=== PATIENT | female | born 1965 | race Caucasian/White ===

== ENCOUNTER 2023-02-04 10:30 | Outpatient (RCR) | payer BC, SELFPAY | END 2023-02-15 09:03 | disposition home or self-care (01) | PROVIDERS: PCP Nurse Practitioner Family; Visit Provider Nurse Practitioner Family | DX: M54.31 Sciatica, right side (principal); Z51.89 Encounter for other specified aftercare | CPT/HCPCS: 97110; 97162 ==

== ENCOUNTER 2023-03-11 10:20 | Outpatient (CLI) | payer BC, SELFPAY ==
--- NOTE | 2023-03-11 10:15 | CRLHL7_ITS ---
For Patients: As a result of the Century Cures Act, medical imaging exams and procedure reports are released immediately into your electronic medical record. You may view this report before your referring provider. If you have questions, please contact your health care provider. INDICATION: Right lower extremity pain TECHNIQUE: Ultrasound venous duplex lower extremity bilateral. Compression venous exam was performed using live-scale, color Doppler, and spectral Doppler imaging. COMPARISON: None. FINDINGS: Sonographic imaging demonstrates the common femoral, deep femoral, superficial femoral, popliteal, posterior tibial and greater saphenous veins to be fully compressible with normal color Doppler blood flow in both lower extremities. IMPRESSION: Normal bilateral lower extremity venous ultrasound, no sign of deep venous thrombosis. Dictated by Conner Alexander MD @ 03/11/2023 11:04:49 AM (Electronically Signed)
== END 2023-03-11 10:21 | disposition home or self-care (01) ==
PROVIDERS: PCP Nurse Practitioner Family; Visit Provider Nurse Practitioner Family
DX: M79.661 Pain in right lower leg (principal); G45.9 Transient cerebral ischemic attack, unspecified; I49.8 Other specified cardiac arrhythmias
CPT/HCPCS: 93225; 93226; 93970

== ENCOUNTER 2023-03-12 09:31 | Outpatient (CLI) | payer BC, SELFPAY | END 2023-03-12 09:32 | disposition home or self-care (01) | PROVIDERS: PCP Nurse Practitioner Family; Visit Provider Nurse Practitioner Family | DX: G45.9 Transient cerebral ischemic attack, unspecified (principal); Z13.6 Encounter for screening for cardiovascular disorders; Z13.1 Encounter for screening for diabetes mellitus | CPT/HCPCS: 80061 ==

== ENCOUNTER 2023-04-30 12:38 | Outpatient (CLI) | payer BC, SELFPAY | END 2023-04-30 12:39 | disposition home or self-care (01) | LOC: RAD 12:38 | PROVIDERS: PCP Nurse Practitioner Family; Visit Provider Internal Medicine | DX: I49.8 Other specified cardiac arrhythmias (principal); R00.2 Palpitations | CPT/HCPCS: 93306 ==

== ENCOUNTER 2023-05-04 13:17 | Outpatient (CLI) | payer BC, SELFPAY | END 2023-05-04 13:18 | disposition home or self-care (01) | LOC: KYNREF 13:17 | PROVIDERS: PCP Nurse Practitioner Family; Visit Provider Nurse Practitioner Family | DX: R00.2 Palpitations (principal); Z13.29 Encounter for screening for other suspected endocrine disorder | CPT/HCPCS: 84443 ==

== ENCOUNTER 2023-06-10 11:55 | Outpatient (CLI) | payer BC, SELFPAY ==
--- OUTSIDE RECORDS SUMMARY | 2023-06-10 11:57 | XMS_ITS ---
Author Name Unknown Organization [facility] Address [address] [place] [address] Care Team Providers Care Adult High School Instructor Name Role Phone Unavailable Unavailable Unavailable Surgery Details Not on file Complications Check Surgery Details section. Procedure Estimated Blood Loss Check Surgery Details section. Procedure Findings Check Surgery Details section. Procedure Specimens Taken Check Surgery Details section.
--- OUTSIDE RECORDS SUMMARY | 2023-06-10 11:57 | XMS_ITS | Encounter Summary ---
Author Name Unknown Organization [facility] Address [address] [place] [address] Care Team Providers Care Ingredient Handler Name Role Phone Janet Perez M.D. Primary Care Provider [phone] Encounter Details Date Type Department Care Team (Latest Contact Info) Description 10/06/2022 7:45 AM CDT Ancillary Procedure Department of Gastroenterology Social History Tobacco Use Types Packs/Day Years Used Date Smoking Tobacco: Never Smokeless Tobacco: Never Alcohol Use Standard Drinks/Week Comments Yes 0 (1 standard drink = 0.6 oz pur e alcohol) Rarely Humiliation, Afraid, Rape, and Kick questionnair e Answer Date Recorded Within the last year, have y ou been afraid of your partner or ex-partner? No 10/25/2019 Within the last year, have y ou been humiliated or emotionally abused in other ways by your partner or ex-partner? No Within the last year, have y ou been kicked, hit, slapped, or otherwise physically hurt by your partner or ex-partner? No 10/25/2019 Within the last year, have y ou been raped or forced to have any kind of sexual activity by your partner or ex-partner? No 10/25/2019 Social Connection and Isolat ion Panel [NHANES] Answer Date Recorded In a typical week, how many times do you talk on the phone with family, friends, or neighbors? More than three times a week 10/25/2019 How often do you get togethe r with friends or relatives? Once a week 10/25/2019 How often do you attend [facility] or mandaeism services? More than 4 times per year 10/25/2019 Do you belong to any clubs o r organizations such as cheondoism groups, unions, fraternal or athletic groups, or school groups? Yes 10/25/2019 How often do you attend meet ings of the clubs or organizations you belong to? More than 4 times per year 10/25/2019 Are you , , di vorced, , never , or living with a partner? 10/25/2019 AUDIT-C Answer Date Recorded Q1: How often do you have a drink containing alc ohol? Monthly or less 10/25/2019 Q2: How many drinks containi ng alcohol do you have on a typical day when you are drinking? 1 or 2 10/25/2019 Q3: How often do you have si x or more drinks on one occasion? Never 10/25/2019 Overall Financial Resource Strain (CARDIA) Answe r Date Recorded How hard is it for you to pa y for the very basics like food, housing, medical care, and heating? Not hard at all 10/25/2019 PHQ-2 Answer Date Recorded PHQ-2 Score 0 06/10/2022 [facility] Occupat ional Health - Occupational Stress Questionnaire Answer Date Recorded Do you feel stress - tense, restless, nervous, or anxious, or unable to sleep at night because your mind is troubled all the time - these days? To some extent 10/25/2019 Exercise Vital Sign Answer Date Recorde d On average, how many days pe r week do you engage in moderate to strenuous exercise (like a brisk walk)? 3 days 10/25/2019 On average, how many minutes do you engage in exercise at this level? 20 min 10/25/2019 Hunger Vital Sign Answer Date Recorded Within the past 12 months, y ou worried that your food would run out before you got the money to buy more. Never true 10/25/19 20 Within the past 12 months, t he food you bought just didn't last and you didn't have money to get more. Never true 10/25/2019 PRAPARE - Transportation Answer Date Re corded In the past 12 months, has l ack of transportation kept you from medical appointments or from getting medications? No 10/08 In the past 12 months, has l ack of transportation kept you from meetings, work, or from getting things needed for daily living? No 10/25/2019 Depression Answer Date Recor ded PHQ-9 Total Score (max 27) 1 03/02 Nutrition Answer Date Recorded Nutrition: EVOO Fat Source No 10/24 On average, how many serving s of fruits and vegetables do you eat per day (serving size is equal to 1 cup or approximately the size of a tennis ball)? 2-3 10/25/2019 Dental Answer Date Recorded Dental: Regular Dentist Yes 05/20/19 Education Answer Date Recorded What is the highest level of school you have completed or the highest degree you have received? 12th grade 10/25/2019 Sex and Gender Information Value Date Recorded Sex Assigned at Not on file Gender Identity Not on file Sexual Orientation Not on file documented as of this encounter Plan of Treatment Not on file documented as of this encounter Procedures Procedure Name Priority Date/Time Associated Diagnosis Comments GASTROENTEROLOGY IMAGE EXAM Routine 10/06/2022 7:45 AM CDT documented in this encounter Results * Colonoscopy-Gastroenterology Image Exam (10/06/2022 7:45 AM CDT) 10/06/2022 7:39 AM CDT Narrative IIMS - 10/06/2022 9:11 AM CDT This order has been created and auto-finalized to support the import of images acquired without order. The clinical documentation to support these images can be found on the encounter that produced images. Provider Not In System IMG NON RAD IMAGI NG PROCEDURES IIMS NA documented in this encounter Visit Diagnoses Not on filedocumented in this encounter Additional Health Concerns Assessment Noted Time PHQ-9 Depression Total Score: 1 03/02/20 9:04 AM CDT documented as of this encounter Care Teams Ingredient Handler Relationship Specialty Start Date End Date Janet Perez M.D. [address] [place] [address] PCP - General 05/28/22 documented as of this encounter
--- OUTSIDE RECORDS SUMMARY | 2023-06-10 11:57 | XMS_ITS | Encounter Summary ---
Author Name Unknown Organization [facility] Address [address] [place] [address] Care Team Providers Care Checkman Name Role Phone Janet Perez M.D. Primary Care Provider [phone] Reason for Visit * Outpatient (Routine) - Closed Specialty Diagnoses / Procedures Referred By Contact Referred To Contact Gastroenterology and Hepatology Pedro Cowan APRN, C.N.P., M.S. [address] [place] [phone] [facility] Referral ID Status Reason Start Date Expiration Date Visits Re quested Visits Authorized [id number] Closed 07/13/2022 07/12/2025 1 1 Encounter Details Date Type Department Care Team (Latest Contact Info) Description 10/08/2022 8:50 AM CDT Virtual Visit Division of Gastroenterology in [place], [place] [address] [place] [phone] Pedro Cowan APRN, C.N.P., M.S. [address] [place] [phone] Esophagitis Eosinophilic (Primary Dx); Polyp Colon Adenomatous Social History Tobacco Use Types Packs/Day Years [...] week 10/25/2019 How often do you attend chur or baptist services? More than 4 times per year 10/25/2019 Do you belong to any clubs o r organizations such as faith groups, unions, fraternal or athletic groups, or [...] Answer Date Recorded PHQ-2 Score 0 06/10/2022 [facility] Occupat ional Health - Occupational Stress [...] on file documented as of this encounter Progress Notes * Pedro Cowan, PRINCESS, C.N.P., M.S. - 10/08/2022 8:50 AM CDT Phone visit. CHIEF COMPLAINT/REASON FOR VISIT Eosinophilic esophagitis, surveillance colon cancer. HISTORY OF PRESENT ILLNESS I spoke to Mrs. Velma Naik on the phone today. We have discussed the colonoscopy and endoscopy results in detail. She has no family history of colon cancer. EGD shows findings for EoE including aringed esophagus and some edema. No exudates. There were some furrows grade 1 and no stricture. Pull-through dilation was performed to 18 mm with mild disruption of the GE junction. She is experiencing some discomfort when she swallows. There were some fundic gland polyps in the stomach without worrisome features. Pathology results are pending. ASSESSMENT / PLAN #1 Eosinophilic esophagitis, currently on omeprazole 20 mg once daily We will wait for the pathology results to return. If she is in remission from an EoE standpoint, she should continue the omeprazole 20 mg once daily. She would prefer a call, as she is not on the portal, once her biopsy results are available. #2 Surveillance colon cancer Again, we will wait for the biopsy results to return, but she can plan on 7-10 year surveillance interval. Billing: I spent 6 minutes with the patient/and family on the phone; reviewing and interpreting test results; discussing and coordinating care. documented in this encounter Plan of Treatment Not on file documented as of this encounter Visit Diagnoses Diagnosis Esophagitis Eosinophilic- Primary Polyp Colon Adenomatous documented in this encounter Additional Health Concerns Assessment Noted Time PHQ-9 Depression Total Score: 1 03/02/20 22 9:04 AM CDT documented as of this encounter Care Teams Checkman Relationship Specialty Start Date End Date Janet Perez M.D. [address] [phone] PCP - General 05/28/22 documented as of this encounter
--- OUTSIDE RECORDS SUMMARY | 2023-06-10 11:57 | XMS_ITS | Encounter Summary ---
Author Name Unknown Organization [facility] Address [address] [place] [address] Care Team Providers Care Instrument Lens Inspector Name Role Phone Janet Perez M.D. Primary Care Provider [phone] Reason for Visit * Reason Comments Med Refill Encounter Details Date Type Department Care Team ([facility] st Contact Info) Description 09/17/2022 Refill Division of Gastroenterology in [place], [place] [address] [place] [phone] Pedro Cowan, PRINCESS, C.N.P., M.S. [address] [place] [phone] Med Refill Social History Tobacco Use Types Packs/Day Years [...] 10/25/2019 How often do you attend chur ch or methodist services? More than 4 times per year 10/25/2019 Do you belong to any clubs o r organizations such as quaker groups, unions, fraternal or athletic groups, or [...] Answer Date Recorded PHQ-2 Score 0 06/10/2022 [facility] Questionnaire Answer Date [...] documented as of this encounter Visit Diagnoses Not on filedocumented in this encounter Additional Health Concerns Assessment Noted Time PHQ-9 Depression Total Score: 1 03/02/20 22 9:04 AM CDT documented as of this encounter Care Teams Instrument Lens Inspector Relationship Specialty Start Date End Date Janet Perez M.D. [address] [place] [phone] PCP - General 05/28/22 documented as of this encounter
--- OUTSIDE RECORDS SUMMARY | 2023-06-10 11:57 | XMS_ITS | Encounter Summary ---
Author Name Unknown Organization [facility] Address [address] [place] [address] Care Team Providers Care Organ Grinder Name Role Phone Janet Perez M.D. Primary Care Provider [phone] Encounter Details Date Type Department Care Team (Latest Contact Info) Description 10/06/2022 8:12 AM CDT Anesthesia Event Division of Gastroenterology in [place], [place] [address] [place] [phone] Kristian Cohen APRN, CRNA, Hyun Gold M.D. [address] [place] [phone] Anesthesia Record Procedure Summary Procedure Name Responsible Anesthesiologist Anesthesia Start Time Anesthesia Stop Time EGD (ESOPHAGOGASTRODUODE NOSCOPY) RESTRICTED Kristian Cohen APRN, CRNA, DNAP 10/06/22 0812 10/06/22 0905 Events Date Time Event Comment 10/06/2022 0739 0812 An Start Machine/Equipme nt Checked Infection Precautions Followed Procedure/Site Verified NPO Status Verified Supine Standard ASA Monitors Applied 0818 Turnover to Proceduralist 0821 Proc Start 0856 Proc Fin 0900 Turnover to ANE Staff 0900 an stop data 0905 An End I completed my handoff to the receiving staff during which we 1. Identified the patient 2. Identified the responsible provider 3. Reviewed the pertinent medical history 4. Discussed the surgical course 5. Reviewed intra-op anesthesia management and issues during anesthesia 6. Set expectations for post-procedure period 7. Allowed opportunity for questions and acknowledgement of understanding. Meds Name Total propofol 10 mg/mL 752.05 mg lidocaine 2% (mg) injection 40 mg ondansetron PF 4 mg/2 mL injection 4 mg Lactated Ringers Free Drip 100 mL * Agents No agents on file. * Blood No blood administrations on file. Lines, Drains, and Airways Type Details Placement Removal Peripheral IV Placement Date: 09/09 ; Placement Time: 734; Catheter Size: 20 G; Orientation: Right; Location: Hand; Site Prep: Chlorhexidine (Preferred); Technique: Anatomical landmarks; Inserted by: Suzy Das; Insertion Attempts: 1; Removal Date: 10/06/22; Removal Time: 952; Removal Reason: Per order 10/06/22734 by Suzy Das, R.N. 10/06/22952 by Suzy Das RElisabethN. documented in this encounter Social History Tobacco Use Types Packs/Day Years [...] How often do you attend chur or faith services? More than 4 times per year 10/25/2019 Do you belong to any clubs o r organizations such as rastafari groups, unions, fraternal or athletic groups, or [...] Answer Date Recorded PHQ-2 Score 0 06/10/2022 [facility] Occupat ional [facility] - Occupational Stress Questionnaire Answer Date Recorded [...] on file documented as of this encounter OR Notes * Anesthesia Postprocedure Evaluation - Kristian Cohen APRN, CRNA, DNAP - 10/06/2022 9:07 AM CDT Patient: Velma Naik Procedure Summary Date: 10/06/22 Room / Location: Division of Gastroenterology in [place], [place] Anesthesia Start: 811 Anesthesia Stop: 904 Procedures: EGD (ESOPHAGOGASTRODUODENOSCOPY) RESTRICTED COLONOSCOPY RESTRICTED Diagnosis: Esophagitis Eosinophilic Dysphagia Polyp Colon Adenomatous Screening Cancer Colon Scheduled Providers: Kristian Bartlett M.D.; Kristian Cohen APRN, CRNA, DNAP Responsible Provider:Kristian Cohen APRN, CRNA, DNAP Anesthesia Type: MAC ASA Status: 2 Anesthesia Type: MAC Last vitals Vitals Value Taken Time BP 101/58 10/06/22 0904 Temp Pulse 80 10/06/22 0906 Resp 18 10/06/22 0906 SpO2 93 % 10/06/22 0906 Vitals shown include unvalidated device data. Please reference Vitals flowsheet for most recent vital signs. Anesthesia Post Evaluation Patient Disposition: dismissal Cardiovascular status: hemodynamics (HR & BP) acceptable Respiratory status: patent airway with spontaneous effort Temperature: normothermic Oxygen requirements: room air Level of consciousness: awake Pain score: pain adequately controlled and/or at baseline Post Op nausea/vomiting: none Hydration status: euvolemic * Anesthesia Preprocedure Evaluation - Hyun Etienne M.D. - 10/06/2022 7:38 AM CDT Preprocedure Anesthesia & H&P Assessment Procedure Summary Date/Time: 10/06/22 0796 Scheduled providers: Kristian Bartlett M.D.; Kristian Cohen, PRINCESS, CLINICAL DIETETIC TECHNICIAN, DNAP Procedures: EGD (ESOPHAGOGASTRODUODENOSCOPY) RESTRICTED COLONOSCOPY RESTRICTED Diagnosis: Esophagitis Eosinophilic [K20.0] Dysphagia [R13.10] Polyp Colon Adenomatous [D12.6] Screening Cancer Colon [Z12.11] Location: Division of Gastroenterology in [place], [place] Pertinent components of the patient's history including current problem list, medical history, surgical history, family history, social history, medications and allergies were reviewed. Present illness and pre-op diagnosis were confirmed. The planned surgery / procedure was verified with the patient / legal guardian. The patient's general health condition remains unchanged RELEVANT COMORBID CONDITIONS RESP (+) Asthma Mild Persistent (HCC) GI (+) Gastro-Esophageal Reflux Disease With Esophagitis Without Bleeding Other (+) Obesity Body Mass Index 30-39.9 Adult OBJECTIVE PHYSICAL EXAMINATION Airway (HEENT) Mallampati: III TM Distance: <3 FB Neck ROM: Full Mouth Opening: >3 cm Upper Lip Bite Test Class: I Cardiovascular Rhythm: Regular Rate: Normal Cardiovascular Assessment: cardiovascular normal Functional Capacity: >4 METS Pulmonary Pulmonary Assessment: Clear General / Constitutional Constitutional Assessment: Overweight General State of Health:: healthy appearing and calm Neurological Neurologic Assessment:??alert Dental Normal ASSESSMENT / PLAN ANESTHESIA PLAN ASA: 2 Anesthesia Plan: MAC Patient seen and allergies reviewed, anesthesia plan and risks discussed directly with patient /legal guardian or through an paraprofessional interpreter. 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[place], [place]; BMI 36; mild asthma; EOE; migraines; here for EGD/colonoscopy; no prior [place] intubation documentation records; MP 3 with anterior appearance; Plan MAC documented in this encounter Plan of Treatment Not on file documented as of this encounter Visit Diagnoses Not on filedocumented in this encounter Administered Medications Inactive Administered Medications - up to 3 most recent administrations Medication Order MAR Action Action Date Dose Rate Site lactated ringers intravenous, Continuous Infusion: Per Instructions PRN, Starting on Wed10/06/22 at 0812, Anesthesia Intra-op New Bag 10/06/2022 8:12 AM CDT lidocaine (PF) (cardiac) injection intravenous, As needed, Starting on Wed10/06/22 at 0815, Anesthesia Intra-op Given 10/06/2022 8:15 AM CDT 40 mg ondansetron (PF) injection (ZOFRAN) intravenous, As needed, Starting on Wed10/06/22 at 0815, Anesthesia Intra-op Given 10/06/2022 8:15 AM CDT 4 mg propofol 10 mg/mL infusion (DIPRIVAN) intravenous, Continuous Infusion: Per Instructions PRN, Starting on Wed10/06/22 at 0815, Anesthesia Intra-op Rate/Dose Change 10/06/2022 8:48 AM CDT 125 mcg/kg/min 73.5 mL/hr Rate/Dose Change 10/06/2022 8:39 AM CDT 150 mcg/kg/min 88. 2 mL/hr Given 10/06/2022 8:38 AM CDT 50 mg documented in this encounter Additional Health Concerns Assessment Noted Time PHQ-9 Depression Total Score: 1 03/02/20 22 9:04 AM CDT documented as of this encounter Care Teams Organ Grinder Relationship Specialty Start Date End Date Janet Perez M.D. [address] [phone] PCP - General 05/28/22 documented as of this encounter
--- OUTSIDE RECORDS SUMMARY | 2023-06-10 11:57 | XMS_ITS | Clinical Summary ---
Author Name Unknown Organization [facility] Address [address] [place] [address] Care Team Providers Care Kitchen Clerk Name Role Phone Janet Perez M.D. Primary Care Provider [phone] Source Comments Patient records contain information from all sites at [facility]. For routine questions regarding patient records, call [phone] during business hours, M-F 8:00 AM - 5:00 PM Central Time. Record requests for emergency care only can be directed to [phone] at any time.[facility] Allergies Active Allergy Reactions Criticality Noted Date Comments Adhesive Tape-Silicones Rash Low 03/30/2019 Causes redness for days Lisinopril Other (see comments) 08/12/2009 Naproxen Other (see comments) 08/12/2009 Rash and extreme itching Pollen Extracts Other (see comments) 12/06/2019 Nasal symptoms Medications Medication Sig Dispensed Refills Start Date End Date Status ACETAMINOPHEN ORAL Take 500 mg by mouth as needed. 0 11/04/2009 Active omeprazole (PriLOSEC OTC) [address] tablet Take 20 mg by mouth every morning before breakfast. 0 Active ibuprofen (ADVIL,MOTRIN) 200 mg tablet Take 200 mg by mouth as needed for pain. 0 Active loratadine (CLARITIN) 10 mg tablet Take 10 mg by mouth daily. 0 Active multivitamin capsule Take 1 capsule by mouth daily. 0 Active Ventolin HFA 90 mcg/actuation inhaler Inhale 2 puffs every 4 (four) hours as needed for wheezing or shortness of breath. 8 g 3 03/02/2022 Active Flovent HFA 44 mcg/actuation inhaler Inhale 2 puffs 2 (two) times a day. Rinse mouth with water after use to reduce aftertaste and incidence of candidiasis. Do not swallow. 10.6 g 3 03/02/2022 Active albuterol (Ventolin HFA) 90 mcg/actuation inhaler Inhale 2 puffs every 4 (four) hours as needed for wheezing or shortness of breath. 18 g 3 04/08/2022 Active fluticasone propionate (FLOVENT HFA) 44 mcg/actuation inhaler Inhale 2 puffs 2 (two) times a day. Rinse mouth with water after use to reduce aftertaste and incidence of candidiasis. Do not swallow. 10.6 g 3 04/08/2022 Active polyethylene glycol-electrolytes (GoLYTELY) 236-22.74-6.74 -5.86 gram solution Drink 1st portion of prep at 6 PM the evening before. 2nd portion must be started 3 hours before and finished 2 hours prior to report time 4000 mL 0 07/13/2022 Active sodium,potassium,mag sulfates (SUPREP BOWEL PREP) 17.5-3.13-1.6 gram solution PM: Mix one 6oz bottle w/water to 16oz line; drink all plus 32oz water over 1 hr. AM: Repeat; complete at least 2 hrs before appt. 1 kit 0 09/18/2022 Active cholecalciferol, vitamin D3, (Vitamin D3) 10 mcg (400 unit) capsule Take 400 Units by mouth. 0 Active Active Problems Problem Noted Date Diagnosed Date Leiomyoma (Fibroid) Uterus 06/10/2022 Overview: Us 06/10/22: Diffuse fibroids throughout myometrium, posterior fibroid distorts endometrium slightly. No fibroids over 2 cm noted. Some calcifications seen. She has a normal thin endometrium. Asthma Mild Persistent 03/02/2022 Preventive Gynecological Exam 01/29/2021 Overview: Pap smear is UTD, repeat next year. Mammogram is UTD, due in May. Colonoscopy is UTD, due for repeat 2026. Routine fasting labs are updated today as listed below. Encouraged her to exercise 4-5 times a week for 30-45 minutes. She is due for a tetanus booster, but we are out of this so she is encouraged to get this elsewhere. Apnea Sleep Obstructive 03/23/2019 Overview: On CPAP. Obesity Body Mass Index 30-39.9 Adult 05/27/2017 Migraine Headache 03/18/2017 Fatigue Chronic 03/18/2017 Incontinence Urinary Stress Female 10/02/2014 Overview: Status post mid urethral sling and doing well. Mild frequency patient will work on bladder training. Esophagitis Eosinophilic 11/16/2012 Anxiety 11/14/2010 Gastro-Esophageal Reflux Dis ease With Esophagitis Without Bleeding 11/14/2010 Resolved Problems Problem Noted Date Diagnosed Date Resolved Date Chronic Cough 03/18/2017 12/17/2019 Anemia 11/14/2010 12/17/2019 Leiomyoma (Fibroid) Uterus 08/21/2009 0 06/10/2022 Immunizations Name Administration Dates Next Due Influenza (IM) Preservative Free 03/04/2009 Influenza TIV (IM) 02/16/2012,02/07/2010 Influenza, Injectable, Quadrivalent 01/31/2015 Influenza, Seasonal, Injectable 02/16/2012,02/07 Influenza, Unspecified 02/25/2018,2016,01/31/2015,2013,02/16/2012,03/16/2011,02/07/2010,1 ,03/24/2008 Tdap 09/29/2021,03/24/2010 influenza vaccine quad (FLUZONE/FLUARIX) (6 months and older)(PF) 03/13/2019,02/25/2018,02/26/2017 Family History Medical History Relation Name Comments Alzheimer's disease Father Alzheimers dementia.. Father Lung cancer Father Diabetes Maternal Grandmother Autoimmune disease Mother Irregular heart beat Mother Osteoporosis Mother Relation Name Status Comments Father Maternal Grandmother Mother Social History Tobacco Use Types Packs/Day Years Used Date Smoking Tobacco: Never Smokeless Tobacco: Never Tobacco Cessation:Counseling Given: Not Answered Alcohol Use Standard Drinks/Week Comments Yes 0 [...] often do you attend chur ch or scientologist services? More than 4 times per year 10/25/2019 Do you belong to any clubs o r organizations such as anabaptist groups, unions, fraternal or athletic groups, or [...] Answer Date Recorded PHQ-2 Score 0 06/10/2022 [facility] of Occupat ional Health - Occupational Stress [...] Answer Date Recorded Nutrition: EVOO Fat Source Unknown 11/04 Nutrition: Servings of Fruits/Vegetables per Day Not on file 11/04/2022 Dental Answer Date Recorded Dental: Regular Dentist Unknown 11/05/19 23 Education Answer Date Recorded What is the highest level of school you have completed or the highest degree you have received? 12th grade 10/25/2019 Sex and Gender Information Value Date Recorded Sex Assigned at Not on file Gender Identity Not on file Sexual Orientation Not on file Last Filed Vital Signs Vital Sign Reading Time Taken Comments Blood Pressure 107/66 10/06/2022 9:51 AM CDT Pulse 73 10/06/2022 9:55 AM CDT Temperature 37 ??C (98.6 ??F) 10/06/2022 9:51 AM CDT Respiratory Rate 11 10/06/2022 9:55 AM CDT Oxygen Saturation 96% 10/06/2022 9:55 AM CDT Inhaled Oxygen Concentration - - Weight 98 kg (216 lb 0.8 oz) 10/06/2022 7:20 AM CDT Height 166 cm (5' 5.35) 06/10/2022 9:14 AM ELECTRICIAN OUTSIDE Body Mass Index 35.56 06/10/2022 9:14 AM ELECTRICIAN OUTSIDE Plan of Treatment Health Maintenance Due Date Last Done Comments CT Colonography 1967 Cologuard 1967 Hepatitis B Vaccines (1 of 3 - 3-dose series) 1967 COVID-19 Vaccine (#1) 1967 Pneumococcal vaccine (0-64 y ears) (1 of 2 - PCV) 1973 Zoster Vaccines (1 of 2) 2017 Influenza Vaccine (#1) 2023 9, 02/25/2018, 02/25/2018, Additional history exists Depression Screening (Annual PHQ-2) 05/10/2023 Mammogram 06/10/2023 06/10/2022, 05/11, 05/31/2020, Additional history exists Fasting Glucose for Diabetes Screening 03/11/2025 03/11/2022, 09/29/2021, 01/29/2021, Additional history exists Lipid (Cholesterol) Screening 01/29/2026 01/29/2021, 06/25/2016 Cervical Cancer Screening 06/10/20272022, 06/10/2022, 08/25/2018, Additional history exists Colonoscopy 10/07/2027 10/06/2022, 09/09, 04/22/2017 Colorectal Cancer Surveillance 10/07/2027 DTaP,Tdap,and Td Vaccines (3 - Td or Tdap) 09/30/2031 09/29/2021, 03/24/2010 HIV Screening Completed 08/31/2011 Hepatitis C Screening Completed 01/29/2021 Medical Devices Implanted Type Area Dynamite Packing Machine Operator Device Identifier Shelf Expiration Date Model / Serial / Lot Clp Rsp [facility] Endo 235 - [id number] Implanted:Qty: 1 on 01/18/2019 by Darlyn Gonzales M.D. at [facility] Hardware e.g. pins/screws/ rods N/A: Other/Legacy - See Implant Description [employer] [id number] 02/26/2021 [id number] Align Sling Retropubic - Rosario [id number] Implanted:Qty: 1 on 11/20/2014 Urogenital Implant Other/Legacy - See Implant Description CElisabethR Description:Device Manufactu rer - [employer] Patient Care Division. Body Location - Other. Not Applicable. Device Status Text - [id number]. Urologic Other Urologic Other Bladder Care Teams Kitchen Clerk Relationship Specialty Start Date End Date Janet Perez M.D. [address] [place] [address] PCP - General 05/28/22
--- OUTSIDE RECORDS SUMMARY | 2023-06-10 11:57 | XMS_ITS | Encounter Summary ---
Author Name Unknown Organization [facility] Address [address] [place] [address] Care Team Providers Care Paper And Prints Restorer Name Role Phone Janet Perez M.D. Primary Care Provider Encounter Details Date Type Department Care Team (Latest Contact Info) Description 10/06/2022 7:40 AM CDT Ancillary Procedure Department of Gastroenterology [...] 10/25/2019 How often do you attend [facility] or voodoo services? More than 4 times per year 10/25/2019 Do you belong to any clubs o r organizations such as voodoo groups, unions, fraternal or athletic groups, or [...] Answer Date Recorded PHQ-2 Score 0 06/10/2022 [facility] of Occupat ional Health - Occupational Stress [...] Diagnosis Comments GASTROENTEROLOGY IMAGE EXAM Routine 10/06/2022 7:40 AM CDT documented in this encounter Results * Duodenum, Entire examined duodenum Upper GI endoscopy-Gastroenterology Image Exam (10/06/2022 7:40 AM CDT) 10/06/2022 7:39 AM CDT Narrative [...] documented as of this encounter Care Teams Paper And Prints Restorer Relationship Specialty Start Date End Date Janet Perez M.D. [address], [place] [address] PCP - General 05/28/22 documented as of this encounter
--- OUTSIDE RECORDS SUMMARY | 2023-06-10 11:57 | XMS_ITS | Encounter Summary ---
Author Name Unknown Organization [facility] Address [address] [place] [address] Care Team Providers Care Fishing Tool Operator Name Role Phone Janet Perez M.D. Primary Care Provider [phone] Reason for Visit * Reason Onset Date Comments Pre-visit Intake 10/07/2022 Encounter Details Date Type Department Care Team (Latest Contact Info) Description 10/07/2022 9:15 AM CDT Clinical Communication Virtual Review in [place], [place] [address] [place] [address] Pre-visit Intake Social History Tobacco Use Types Packs/Day Years [...] often do you attend chur ch or mosque services? More than 4 times per year 10/25/2019 Do you belong to any clubs o r organizations such as yazidism groups, unions, fraternal or athletic groups, or [...] Answer Date Recorded PHQ-2 Score 0 06/10/2022 [facility] of Occupat ional Health - Occupational Stress [...] documented as of this encounter Care Teams Fishing Tool Operator Relationship Specialty Start Date End Date Janet Perez M.D. [address], [place] [phone] PCP - General 05/28/22 documented as of this encounter
--- OUTSIDE RECORDS SUMMARY | 2023-06-10 11:57 | XMS_ITS | Referral Summary ---
Author Name Unknown Organization [facility] Address [address] [place] [address] Care Team Providers Care Swiss Machinist Name Role Phone Janet Perez M.D. Primary Care Provider [phone] Source Comments Patient records contain information from all sites at [facility]. For routine questions regarding patient records, call [phone] during business hours, M-F 8:00 AM - 5:00 PM Central Time. Record requests for emergency care only can be directed to [phone] at any time.[facility] Allergies Active Allergy Reactions Criticality Noted Date [...] quad (FLUZONE/FLUARIX) (6 months and older)(PF) 03/13/2019,02/25/2018,02/26/2017 Social History Tobacco Use Types Packs/Day Years [...] How often do you attend chur or confucianism services? More than 4 times per year 10/25/2019 Do you belong to any clubs o r organizations such as shinto groups, unions, fraternal or athletic groups, or [...] Answer Date Recorded PHQ-2 Score 0 06/10/2022 [facility] of Occupat ional Health - Occupational Stress [...] Date Recorded Dental: Regular Dentist Unknown 11/05/19 Education Answer Date Recorded What is the [...] 166 cm (5' 5.35) 06/10/2022 9:14 AM FLAT POLISHER Body Mass Index 35.56 06/10/2022 9:14 AM FLAT POLISHER Plan of Treatment Not on file Medical Devices Implanted Type Area Profiling Machine Operator Device Identifier Shelf Expiration Date Model / Serial / Lot Clp Rsp [facility] Endo 235 - [id number] Implanted:Qty: 1 on 01/18/2019 by Darlyn Gonzales M.D. at [facility]/[employer] e.g. pins/screws/ rods N/A: Other/Legacy - See Implant Description [employer] [id number] 02/26/2021 [id number] Align Sling Retropubic - Rosario [id number] Implanted:Qty: 1 on 11/20/2014 Urogenital Implant Other/Legacy - See Implant Description Description:Device Manufactu rer - [employer] Patient Care Division. Body Location - Other. Not Applicable. Device Status Text - [id number]. Urologic Other Urologic Other Bladder Care Teams Swiss Machinist Relationship Specialty Start Date End Date Janet Perez M.D. [address] [place] [address] PCP - General 05/28/22
--- OUTSIDE RECORDS SUMMARY | 2023-06-10 11:57 | XMS_ITS | Encounter Summary ---
Author Name Unknown Organization [facility] Address [address] [place] [address] Care Team Providers Care Knockout Man Name Role Phone Janet Perez M.D. Primary Care Provider [phone] Reason for Referral * Outpatient (Routine) - Closed Specialty Diagnoses / Procedures Referred By Maxim rivera Referred To Contact Diagnoses Polyp Colon Adenomatous Screening Cancer Colon Procedures Colonoscopy restricted Pedro Cowan APRN, C.N.P., M.S. [address] [place] [phone] [facility] Referral ID Status Reason Start Date Expiration Date Visits Re quested Visits Authorized [id number] Closed 07/13/2022 07/13/2023 1 1 * Outpatient (Routine) - Closed Specialty Diagnoses / Procedures Referred By Maxim rivera Referred To Contact Diagnoses Esophagitis Eosinophilic Dysphagia Procedures EGD (EsophagoGastroDuodenoscopy) Restricted Pedro Cowan APRN C.N.P., M.S. [address] [place] [phone] [facility] Referral ID Status Reason Start Date Expiration Date Visits Re quested Visits Authorized [id number] Closed 07/13/2022 07/13/2023 1 1 Reason for Visit * Outpatient (Routine) - Closed Specialty Diagnoses / Procedures Referred By Maxim rivera Referred To Contact Diagnoses Polyp Colon Adenomatous Screening Cancer Colon Procedures Colonoscopy restricted Pedro Cowan APRN, C.NPascual., M.S. [address] [place] [phone] [facility] Referral ID Status Reason Start Date Expiration Date Visits Re quested Visits Authorized [id number] Closed 07/13/2022 07/13/2023 1 1 Encounter Details Date Type Department Care Team (Latest Contact Info) Description 10/06/2022 6:44 AM CDT - 10/06/2022 11:59 PM CDT Hospital Encounter Division of Gastroenterology in [place], [place] [address] [place] [phone] Pedro Cowan APRN, C.NPascual., M.S. [address] [place] [phone] Kristian Bartlett M.D. [address] [place] [phone] Kristian Cohen APRN, STEP DOWN NURSE, DNAP Esophagitis Eosinophilic; Dysphagia; Polyp Colon Adenomatous; Screening Cancer Colon Discharge Disposition: Home or Self Care Social History Tobacco Use Types Packs/Day Years [...] often do you attend chur ch or jew services? More than 4 times per year 10/25/2019 Do you belong to any clubs o r organizations such as evangelical groups, unions, fraternal or athletic groups, or [...] Date Recorded PHQ-2 Score 0 06/10/2022 [facility] Questionnaire Answer Date Recorded [...] on file documented as of this encounter Last Filed Vital Signs Vital Sign Reading Time Taken Comments Blood Pressure 107/66 10/06/2022 9:51 AM CDT Pulse 73 10/06/2022 9:55 AM CDT Temperature 37 ??C (98.6 ??F) 10/06/2022 9:51 AM CDT Respiratory Rate 11 10/06/2022 9:55 AM CDT Oxygen Saturation 96% 10/06/2022 9:55 AM CDT Inhaled Oxygen Concentration - - Weight 98 kg (216 lb 0.8 oz) 10/06/2022 7:20 AM CDT Height - - Body Mass Index 35.56 06/10/2022 9:14 AM LINUX ADMIN ENGINEER documented in this encounter Medications at Time of Discharge Medication Sig Dispensed Refills Start Date End Date ACETAMINOPHEN ORAL Take 500 mg by mouth as needed. 0 11/04/2009 albuterol (Ventolin HFA) 90 mcg/actuation inhaler Inhale 2 puffs every 4 (four) hours as needed for wheezing or shortness of breath. 18 g 3 04/08/2022 cholecalciferol, vitamin D3, (Vitamin D3) 10 mcg (400 unit) capsule Take 400 Units by mouth. 0 Flovent HFA 44 mcg/actuation inhaler Inhale 2 puffs 2 (two) times a day. Rinse mouth with water after use to reduce aftertaste and incidence of candidiasis. Do not swallow. 10.6 g 3 03/02/2022 fluticasone propionate (FLOVENT HFA) 44 mcg/actuation inhaler Inhale 2 puffs 2 (two) times a day. Rinse mouth with water after use to reduce aftertaste and incidence of candidiasis. Do not swallow. 10.6 g 3 04/08/2022 ibuprofen (ADVIL,MOTRIN) 200 mg tablet Take 200 mg by mouth as needed for pain. 0 loratadine (CLARITIN) 10 mg tablet Take 10 mg by mouth daily. 0 multivitamin capsule Take 1 capsule by mouth daily. 0 omeprazole (PriLOSEC OTC) [address] tablet Take 20 mg by mouth every morning before breakfast. 0 polyethylene glycol-electrolytes (GoLYTELY) 236-22.74-6.74 -5.86 gram solution Drink 1st portion of prep at 6 PM the evening before. 2nd portion must be started 3 hours before and finished 2 hours prior to report time 4000 mL 0 07/13/2022 sodium,potassium,mag sulfates (SUPREP BOWEL PREP) 17.5-3.13-1.6 gram solution PM: Mix one 6oz bottle w/water to 16oz line; drink all plus 32oz water over 1 hr. AM: Repeat; complete at least 2 hrs before appt. 1 kit 0 09/18/2022 Ventolin HFA 90 mcg/actuation inhaler Inhale 2 puffs every 4 (four) hours as needed for wheezing or shortness of breath. 8 g 3 03/02/2022 documented as of this encounter Plan of Treatment Not on file documented as of this encounter Procedures Procedure Name Priority Date/Time Associated Diagnosis Comments SURGICAL PATHOLOGY Routine 10/06/2022 8: 23 AM CDT COLONOSCOPY RESTRICTED Routine 10/06/2022 7:39 AM CDT Polyp Colon Adenomatous Screening Cancer Colon COLONOSCOPY Routine 10/06/2022 7:39 AM CDT Polyp Colon Adenomatous Screening Cancer Colon EGD (ESOPHAGOGASTRODUODE NOSCOPY) RESTRICTED Routine 10/06/2022 7:39 AM CDT Esophagitis Eosinophilic Dysphagia UPPER GI ENDOSCOPY Routine 10/06/2022 7: 39 AM CDT Esophagitis Eosinophilic Dysphagia documented in this encounter Results * Surgical Pathology (10/06/2022 8:23 AM CDT) 10/09/2022 10:38 AM CDT DTL Participated in the Interpretation Julissa Botello D.O. -Pathology Fellow 10/09/2022 10:38 AM CDT DTL Report electronically signed by Inez Pelayo M.D. I verify that I have examined all relevant slides/materials for the specimen(s) and rendered or confirmed the diagnosis. 10/09/2022 10:38 AM CDT DTL Gross Description A: Received in formalin labeled with the patient's name, medical record number, and esophagus-lower third esophagus, middle thirdesophagus are two pale jacobo-pink irregular soft tissues, each measuring 0.3 x 0.2 x 0.1 cm. Specimens are submitted en toto in cassetteA1. ??Grossed by BLW. B: Received in formalin labeled with the patient's name, medical record number, and colon-sigmoid is a 1.1 x 0.5 x 0.2 cm pale jacobo-pinkpolypoid soft tissue. Specimen is inked at the resection margin, serially sectioned, and submitted entirely in cassette B1. Grossed byBLW. 10/09/2022 10:38 AM CDT DTL Interpretation FINAL DIAGNOSIS A. ??Esophagus, lower third, middle third, endoscopic biopsy: ??Squamous esophageal mucosa without diagnostic abnormality. ??No intraepithelial eosinophils identified. B. ??Colon, sigmoid, polyp, endoscopic biopsy: ??Colonic mucosa with focal hyperplastic change. ??No dysplasia. 10/09/2022 10:38 AM CDT DTL Biopsy (Esophagus) 10/06/2022 8:23 AM CDT Polyp (Colon) 10/06/2022 8:5 6 AM CDT Kristian Bartlett M.D. LAB SURG PATH ORDER [facility] [address] [place] [address], [facility] [address] [place] [address] * Colonoscopy (10/06/2022 7:39 AM CDT) 10/06/2022 7:39 AM CDT Impressions [facility] - 10/06/2022 9:04 AM CDT Post-op Diagnoses: ? - The examined portion of the ileum was normal. ? - One 4 mm flat polyp in the sigmoid colon, removed with a cold snare. ? Resected and retrieved. ? - The examination was otherwise normal. ? - Retroflexion in rectum not performed due to small size. Narrative [facility] - 10/06/2022 9:04 AM CDT Gonda 2 GI Patient Name: Velma Naik Date of : 1965 Age: 57 Gender: Female Procedure Date: 10/06/2022 Procedure: ? Colonoscopy Providers: ? Kristian Bartlett MD Referring Provider: ?Pedro Cowan Pre-op Diagnoses: ?High risk colon cancer surveillance: Personal ? history of colonic polyps Recommendation: ? - Await pathology results. ? - Repeat colonoscopy in 7-10 years for surveillance. ? - Return to physician assistant manager airside operations. Findings: ? The perianal and digital rectal examinations were normal. ? The terminal ileum appeared normal. ? A 4 mm polyp was found in the sigmoid colon. The polyp was flat. The ? polyp was removed with a cold snare. Resection and retrieval were ? complete. ? The exam was otherwise without abnormality. Procedural Details: ? The patient was seen, evaluated, history reviewed, airway and heart-lung ? exams were performed by licensed provider and were satisfactory for ? planned level of sedation care. ? The risks, benefits and alternatives for the procedure and sedation were ? discussed and informed consent was obtained. A procedural pause was ? conducted in the presence of assisting personnel to verify the correct ? patient identity and procedure to be performed. Throughout the ? procedure, the patient's blood pressure, pulse, and oxygen saturations ? were monitored continuously. The Colonoscope was introduced through the ? anus and advanced to the 6 cm into the ileum. The colonoscopy was ? performed without difficulty. The patient tolerated the procedure well. ? The quality of the bowel preparation was evaluated using the BBPS ? ([place] Bowel Preparation Scale) with scores of: Right Colon = 3, ? Transverse Colon = 3 and Left Colon = 3 (entire mucosa seen well with no ? residual staining, small fragments of stool or opaque liquid). The total ? BBPS score equals 9. The quality of the bowel preparation was excellent. Complications: ? No immediate complications. Estimated Blood Loss: ?Estimated blood loss was minimal. Attending Participation: I personally performed the entire procedure. Kristian Bartlett MD 10/06/2022 9:04:08 AM This report has been signed electronically. Number of Addenda: 0 Note Initiated On: 10/06/2022 7:39 AM Pedro Cowan APRN, C.N.P., M.S. GI [place] OCEDURE ORDERABLES Performing Organization Address City/State/[facility] Co de Phone Number [facility] NA * Upper GI Endoscopy (10/06/2022 7:39 AM CDT) 10/06/2022 7:39 AM CDT Impressions [facility] - 10/06/2022 9:00 AM CDT Post-op Diagnoses: ? - Esophageal mucosal changes consistent with mild eosinophilic ? esophagitis. Pull-through, 18 mm balloon dilation performed with mild ? mucosal disruption at GE junction. Biopsied. ? - Multiple, moderately sized fundic gland polyps without worrisome ? features. ? - Normal examined duodenum. Narrative [facility] - 10/06/2022 9:00 AM CDT Ryana 2 GI Patient Name: Velma Naik Date of : 1965 Age: 57 Gender: Female Procedure Date: 10/06/2022 Procedure: ? Upper GI endoscopy Providers: ? Kristian Bartlett MD Referring Provider: ?Pedro Mohan Pre-op Diagnoses: ?Dysphagia, Eosinophilic esophagitis Recommendation: ? - Await pathology results. ? - Return to physician assistant manager airside operations. Findings: ? Mucosal changes including ringed esophagus and congestion (edema) were ? found in the lower third of the esophagus. Esophageal findings were ? graded using the Eosinophilic Esophagitis Endoscopic Reference Score ? (EoE-EREFS) as: Edema Grade 1 Present (decreased clarity or absence of ? vascular markings), Rings Grade 1 Mild (subtle circumferential ridges ? seen on esophageal distension), Exudates Grade 0 None (no white lesions ? seen), Furrows Grade 1 Mild (vertical lines without visible depth) and ? Stricture none (no stricture found). A TTS dilator was passed through ? the scope. Dilation with a 15-16.5-18 mm balloon dilator was performed ? to 18 mm. The dilation site was examined and showed mild mucosal ? disruption. Biopsies were taken with a cold forceps for histology. ? Multiple medium semi-sessile fundic gland polyps were found in the ? gastric fundus and in the gastric body. ? The examined duodenum was normal. Procedural Details: ? The patient was seen, evaluated, history reviewed, airway and heart-lung ? exams were performed by licensed provider and were satisfactory for ? planned level of sedation care. ? The risks, benefits and alternatives for the procedure and sedation were ? discussed and informed consent was obtained. A procedural pause was ? conducted in the presence of assisting personnel to verify the correct ? patient identity and procedure to be performed. Throughout the ? procedure, the patient's blood pressure, pulse, and oxygen saturations ? were monitored continuously. The Gastroscope was introduced through the ? mouth, and advanced to the second part of duodenum. The upper GI ? endoscopy was accomplished without difficulty. The patient tolerated the ? procedure well. Complications: ? No immediate complications. Estimated Blood Loss: ?Estimated blood loss was minimal. Attending Participation: I personally performed the entire procedure. Kristian Bartlett MD 10/06/2022 9:00:04 AM This report has been signed electronically. Number of Addenda: 0 Note Initiated On: 10/06/2022 7:39 AM Juanita Hernandez APRNN.P., M.S. GI [place] OCEDURE ORDERABLES Performing Organization Address City/State/[facility] Co ks Phone Number [facility] documented in this encounter Visit Diagnoses Diagnosis Esophagitis Eosinophilic Dysphagia Polyp Colon Adenomatous Screening Cancer Colon documented in this encounter Administered Medications Inactive Administered Medications - up to 3 most recent administrations Medication Order MAR Action Action Date Dose Rate Site lactated ringers 20 mL/hr, intravenous, Continuous, Starting on Wed10/06/22 at 0845, PACU & Post-Op Continued from OR 10/06/2022 9:10 AM CDT 20 mL/hr 20 mL/hr documented in this encounter Additional Health Concerns Assessment Noted Time PHQ-9 Depression Total Score: 1 03/02/20 22 9:04 AM CDT documented as of this encounter Care Teams Knockout Man Relationship Specialty Start Date End Date Janet Perez M.D. [address], [place] [phone] PCP - General 05/28/22 documented as of this encounter
--- OUTSIDE RECORDS SUMMARY | 2023-06-10 11:57 | XMS_ITS | Encounter Summary ---
Author Name Unknown Organization [facility] Address [address] [place] [address] Care Team Providers Care Pick Up Truck Driver Name Role Phone Janet Perez M.D. Primary Care Provider [phone] Reason for Visit * Reason Onset Date Comments Results 10/09/2022 Follow-up 10/09/2022 Encounter Details Date Type Department Care Team (Latest Contact Info) Description 10/09/2022 Clinical Communication Division of Gastroenterology in [place], [place] [address] [place] [phone] Radha Parker, RElisabethNElisabeth Results; Follow-up Social History Tobacco Use Types Packs/Day Years [...] often do you attend chur ch or caodaism services? More than 4 times per year 10/25/2019 Do you belong to any clubs o r organizations such as confucianism groups, unions, fraternal or athletic groups, or [...] Answer Date Recorded PHQ-2 Score 0 06/10/2022 [facility] - Occupational Stress [...] on file documented as of this encounter Miscellaneous Notes * Telephone Encounter - Radha Parker R.N. - 10/09/2022 2:42 PM CDT Images from the original note were not included. SUBJECTIVE CHIEF COMPLAINT / REASON FOR CALL Results Information Discussed Pedro Cowan APRN, C.N.P., M.S. P t [facility] Nurse Please let patient know biopsies from the esophagus looked good. Continue on 20 mg Prilosec once daily and return on an as need basis PLAN Disposition/Recommendation: self-care is appropriate at this time, patient encouraged to call back with questions and recommended continue engagement in self-management activities Information/Education: patient/caller able to teach back Caller agreeable to plan of care: yes The following references were used: provider Pedro Cowan APRN-TUNNEL MINER documented in this encounter Plan of Treatment Not on file documented as of this encounter Visit Diagnoses Not on filedocumented in this encounter Additional Health Concerns Assessment Noted Time PHQ-9 Depression Total Score: 1 03/02/20 22 9:04 AM CDT documented as of this encounter Care Teams Pick Up Truck Driver Relationship Specialty Start Date End Date Janet Perez M.D. [address] [place] [phone] PCP - General 05/28/22 documented as of this encounter
--- OUTSIDE RECORDS SUMMARY | 2023-06-10 11:58 | XMS_ITS | Encounter Summary ---
Author Name Unknown Organization [facility] Address [address] [place] [address] Care Team Providers Care Oracle Soa Architect Name Role Phone Janet Perez M.D. Primary Care Provider [phone] Reason for Referral * Outpatient (Routine) - Closed Specialty Diagnoses / Procedures Referred By Contact Referred To Contact Gastroenterology and Hepatology Pedro Cowan APRN, C.N.Cuong., M.S. [address] [place] [phone] [facility] Referral ID Status Reason Start Date Expiration Date Visits Re quested Visits Authorized [id number] Closed 07/13/2022 07/12/2025 1 1 CTURAL STEEL ENGINEER * Outpatient (Routine) - Closed Specialty Diagnoses / Procedures Referred By Contac t Referred To Contact Diagnoses Polyp Colon Adenomatous Screening Cancer Colon Procedures Colonoscopy restricted Pedro Cowan APRN C.N.P., M.S. [address] [place] [address] [facility] Referral ID Status Reason Start Date Expiration Date Visits Re quested Visits Authorized [id number] Closed 07/13/2022 07/13/2023 1 1 CTURAL STEEL ENGINEER * Outpatient (Routine) - Closed Specialty Diagnoses / Procedures Referred By Contac t Referred To Contact Diagnoses Esophagitis Eosinophilic Dysphagia Procedures EGD (EsophagoGastroDuodenoscopy) Restricted Pedro Cowan APRN, C.N.P., M.S. [address] [place] [phone] [facility] Referral ID Status Reason Start Date Expiration Date Visits Re quested Visits Authorized [id number] Closed 07/13/2022 07/13/2023 1 1 CTURAL STEEL ENGINEER Reason for Visit * Appointment Request (Routine) - Pending Review Specialty Diagnoses / Procedures Referred By Contact Referred To Contact Gastroenterology and Hepatology Pedro Cowan APRN, C.N.P., M.S. [address] [place] [phone] Referral ID Status Reason Start Date Expiration Date V isits Requested Visits Authorized [id number] Pending Review 07/10/2022 07/10/2023 1 1 Encounter Details Date Type Department Care Team (Latest Contact Info) Description 07/13/2022 2:00 PM STRUCTURAL STEEL ENGINEER Virtual Visit Division of Gastroenterology in [place], [place] [address] [place] [phone] Pedro Cowan APRN, C.N.P., M.S. [address] [place] [phone] Esophagitis Eosinophilic (Primary Dx); Dysphagia; Polyp Colon Adenomatous; Screening Cancer Colon Social History Tobacco Use Types Packs/Day Years [...] often do you attend chur ch or hoahaoism services? More than 4 times per year [...] Answer Date Recorded PHQ-2 Score 0 06/10/2022 [facility] Occupat ional Health - Occupational Stress [...] * Pedro Cowan, PRINCESS, C.N.P., M.S. - 07/13/2022 2:00 PM CST Phone visit. CHIEF COMPLAINT/REASON FOR VISIT Eosinophilic esophagitis, surveillance colon cancer, gastroesophageal reflux. HISTORY OF PRESENT ILLNESS This is a phone visit that was primarily set up based on Mrs. Naik's portal message. She did see a provider in [place] who questioned the need for a long- term PPI as he thought it could be effecting bone density per her report. Mrs. Naik has a history of eosinophilic esophagitis and currently on omeprazole 20 mg once daily in the morning. Previously seen by Dr. Leonard and has done a Cytosponge in the past. Most recent esophageal results was from a Cytosponge in November 2020 showing no intraepithelial eosinophils. She is doing okay from a dysphagia standpoint but has to be careful at times. Most recent endoscopy was 03/2020 showing minimal luminal narrowing at the EG junction dilated to 18 mm. There were esophageal changes suggestive of EoE. EREFS score was not documented. Multiple fundic gland polyps in the body and fundus measuring 10 mm or less. She is also due for surveillance colonoscopy. She is scheduled for this locally but inquiring whether we can just do it here. ASSESSMENT / PLAN #1 Eosinophilic esophagitis #2 Gastroesophageal reflux We will get her back for an endoscopy given her mild dysphagia symptoms to get a sense if she is still in remission on Prilosec 20 mg once daily. If she is still in remission, I recommend she continue the same. We discussed potential PPI side effects in the literature that is out there. #3 Surveillance colon cancer Will arrange for a colonoscopy at the same time. Asked her to meet with me in the office before these procedures. Billing: I spent 20 minutes with the patient/and family on the phone; reviewing and interpreting test results; discussing and coordinating care. CTURAL STEEL ENGINEER documented in this encounter Plan of Treatment Scheduled Referrals Name Type Priority Associated Diagnoses Order Schedule Gastroenterology and Hepatology office visit (clinic) Outpatient Referral Routine Expected: 07/13/2022 (Approximate), Expires: 10/14/2023 documented as of this encounter Visit Diagnoses Diagnosis Esophagitis Eosinophilic- Primary Dysphagia Polyp Colon Adenomatous Screening Cancer Colon documented in this encounter Additional Health Concerns Assessment Noted Time PHQ-9 Depression Total Score: 1 03/02/20 22 9:04 AM CDT documented as of this encounter Care Teams Oracle Soa Architect Relationship Specialty Start Date End Date Janet Perez M.D. [address], [place] [phone] PCP - General 05/28/22 documented as of this encounter
--- OUTSIDE RECORDS SUMMARY | 2023-06-10 11:58 | XMS_ITS | Encounter Summary ---
Author Name Unknown Organization [facility] Address [address] [place] [address] Care Team Providers Care Bus Monitor Name Role Phone Janet Perez M.D. Primary Care Provider [phone] Encounter Details Date Type Department Care Team (Late st Contact Info) Description 06/11/2022 Clinical Communication Department of Obstetrics and Gynecology in [place], [place] [address] [place] [address] Ramirez Boggs Jr., M.D. [address] [place] [address] Social History Tobacco Use Types Packs/Day Years [...] often do you attend chur ch or nondenominational services? More than 4 times per year 10/25/2019 Do you belong to any clubs o r organizations such as yarsanism groups, unions, fraternal or athletic groups, or [...] Answer Date Recorded PHQ-2 Score 0 06/10/2022 [facility] - Occupational [...] Date Recorded Dental: Regular Dentist Yes 05/20/19 23 Education Answer Date Recorded What is the highest level of school you have completed or the highest degree you have received? 12th grade 10/25/2019 Sex and Gender Information Value Date Recorded Sex Assigned at Not on file Gender Identity Not on file Sexual Orientation Not on file documented as of this encounter Miscellaneous Notes * Telephone Encounter - Galilea Ambrose R.N. - 06/11/2022 11:48 AM CST SUBJECTIVE CHIEF COMPLAINT / REASON FOR CALL F/U Vitamin D. Information Discussed Multivitamin with vitamin D included is new within last year. Her last vitamin D level drawn 01/2021. PLAN Disposition/Recommendation: notified provider and awaiting recommendations and recommended continueengagement in self-management activities Spoke with Dr. Boggs. Pt to take a total of 2000 units of Vitamin D daily. She should continue multivitamin and add in 1000 units supplement and re check Vitamin D in one year. Information/Education: patient/caller able to teach back Caller agreeable to plan of care: yes The following references were used: nursing clinical judgement COORDINATOR documented in this encounter Plan of Treatment Scheduled Orders Name Type Priority Associated Diagnoses Orde r Schedule 25-Hydroxyvitamin D2 and D3 Lab Routine Preventive Gynecological Exam Expected: 06/11/2023 (Approximate), Expires: 09/09/2023 documented as of this encounter Visit Diagnoses Diagnosis Preventive Gynecological Exam- Primary documented in this encounter Additional Health Concerns Assessment Noted Time PHQ-9 Depression Total Score: 1 03/02/20 22 9:04 AM CDT documented as of this encounter Care Teams Bus Monitor Relationship Specialty Start Date End Date Janet Perez M.D. [address] [place] [phone] PCP - General 05/28/22 documented as of this encounter
--- OUTSIDE RECORDS SUMMARY | 2023-06-10 11:58 | XMS_ITS | Encounter Summary ---
Author Name Unknown Organization [facility] Address [address] [place] [address] Care Team Providers Care Leak Hunter Name Role Phone Janet Perez M.D. Primary Care Provider [phone] Reason for Referral * Outpatient (Routine) - Closed Specialty Diagnoses / Procedures Referred By Maxim rivera Referred To Contact Diagnoses Screening Mammogram Breast Cancer Procedures BI Breast Screening Bilateral with Tomosynthesis Ramirez Boggs Jr., M.D. [address] [place] [phone] [facility] Region Referral ID Status Reason Start Date Expiration Date Visits Re quested Visits Authorized [id number] Closed 04/20/2022 04/20/2023 1 1 S SUPERVISOR Reason for Visit * Outpatient (Routine) - Closed Specialty Diagnoses / Procedures Referred By Maxim rivera Referred To Contact Diagnoses Screening Mammogram Breast Cancer Procedures BI Breast Screening Bilateral with Tomosynthesis Ramirez Boggs Jr., M.D. [address] [place] [phone] [facility] Region Referral ID Status Reason Start Date Expiration Date Visits Re quested Visits Authorized [id number] Closed 04/20/2022 04/20/2023 1 1 Encounter Details Date Type Department Care Team (Latest Contact Info) Description 06/10/2022 10:25 AM OVENS SUPERVISOR - 06/10/2022 11:59 PM OVENS SUPERVISOR Hospital Encounter Department of Radiology in [place] [address] [facility] [place] [address] Ramirez Boggs Jr., M.D. [address] [phone] Screening Mammogram Breast Cancer Discharge Disposition: Home or Self Care Social [...] How often do you attend chur or amish services? More than 4 times per year 10/25/2019 Do you belong to any clubs o r organizations such as baptist groups, unions, fraternal or athletic groups, or [...] Date Recorded PHQ-2 Score 0 06/10/2022 [facility] - [facility]ational Stress Questionnaire Answer Date [...] on file documented as of this encounter Medications at Time of Discharge Medication Sig Dispensed Refills Start Date End Date ACETAMINOPHEN ORAL Take 500 mg by mouth as needed. 0 11/04/2009 albuterol (Ventolin HFA) 90 mcg/actuation inhaler Inhale 2 puffs every 4 (four) hours as needed for wheezing or shortness of breath. 18 g 3 04/08/2022 Flovent HFA 44 mcg/actuation inhaler Inhale 2 [...] by mouth every morning before breakfast. 0 Ventolin HFA 90 mcg/actuation inhaler Inhale 2 puffs every 4 (four) hours as needed for wheezing or shortness of breath. 8 g 3 03/02/2022 documented as of this encounter Plan of Treatment Not on file documented as of this encounter Procedures Procedure Name Priority Date/Time Associated Diagnosis Comments BI BREAST SCREENING BILATERAL WITH TOMOSYNTHESIS RAD - Routine (most inpatients and all outpatients) 06/10/2022 10:47 AM OVENS SUPERVISOR Screening Mammogram Breast Cancer documented in this encounter Results * BI Breast Screening Bilateral with Tomosynthesis (06/10/2022 10:47 AM OVENS SUPERVISOR) Anatomical Region Laterality Modality Breast, Breast Imaging RST L OS, Breast Imaging ARZ LOS, Breast Imaging FLA LOS Bilateral Mammography 06/10/2022 4:11 PM OVENS SUPERVISOR Impressions 06/10/2022 4:11 PM OVENS SUPERVISOR Negative. RECOMMENDATION: ??Annual Screening Mammogram ASSESSMENT: ??BI-RADS: 1: Negative. Narrative 06/10/2022 4:11 PM OVENS SUPERVISOR EXAM: ??BI BREAST SCREENING BILATERAL WITH TOMOSYNTHESIS Current study was evaluated with a Computer Aided Detection (CAD) system. INDICATION: ??Screening mammogram. COMPARISON: ??Prior exam(s) were available and reviewed for comparison. DENSITY: ??b. There are scattered areas of fibroglandular density. FINDINGS: ??No mammographic findings of malignancy. Procedure Note Dakota Byers M.D. - 06/10/2022 EXAM: BI BREAST SCREENING BILATERAL WITH TOMOSYNTHESIS Current study was evaluated with a Computer Aided Detection (CAD) system. INDICATION: Screening mammogram. COMPARISON: Prior exam(s) were available and reviewed for comparison. DENSITY: b. There are scattered areas of fibroglandular density. FINDINGS: No mammographic findings of malignancy. IMPRESSION: Negative. RECOMMENDATION: Annual Screening Mammogram ASSESSMENT: BI-RADS: 1: Negative. Ramirez Boggs Jr., M.D. IMG BI PROCEDU RES documented in this encounter Visit Diagnoses Diagnosis Screening Mammogram Breast Cancer documented in this encounter Additional Health Concerns Assessment Noted Time PHQ-9 Depression Total Score: 1 03/02/20 22 9:04 AM CDT documented as of this encounter Care Teams Leak Hunter Relationship Specialty Start Date End Date Janet Perez M.D. [address] [phone] PCP - General 05/28/22 documented as of this encounter
--- OUTSIDE RECORDS SUMMARY | 2023-06-10 11:58 | XMS_ITS | Clinical Summary ---
Author Name Unknown Organization [facility] Address [place], [place] [address] Care Team Providers Care Dance Entertainer Name Role Phone Faby Roe INSPECTOR BALL POINTS Primary Care Provider [phone] Allergies Active Allergy Reactions Criticality Noted Date Comments Adhesive Tape-Silicones Erythema 03/30/2019 Bee Pollen Other - Describe In Comment Field Medium 12/06/2019 Nasal symptoms: Grass, cats, dogs, weeds, dust Naproxen Hives 02/11/2017 Lisinopril Palpitations 02/11/2017 Medications Medication Sig Dispensed Refills Start Date End Date Status albuterol HFA (Ventolin HFA) 90 mcg/actuation inhaler Inhale 2 Puffs by mouth every 4 hours if needed. 0 12/01/2020 Active FLUoxetine (PROZAC) 10 mg capsule Take 10 mg by mouth. 0 09/06/2020 Active loratadine (CLARITIN) 10 mg tablet Take 10 mg by mouth. 0 Active multivitamin capsule Take 1 Capsule by mouth once daily. 0 Active omeprazole (PRILOSEC-OTC) 20 mg tablet Take 20 mg by mouth. 0 Active benzonatate (TESSALON) 100 mg capsule Take 100 mg by mouth. 0 03/17/2021 Active fluticasone propionate (Flovent HFA) 44 mcg/Actuation inhaler INHALE 2 PUFFS BY MOUTH TWICE DAILY FOR ASTHMA . USE THROUGH THE SUMMER DUE TO GRASS ALLERGY 0 12/01/2020 Active fluticasone propionate (FLOVENT) 44 mcg/Actuation inhalerIndications:Bro nchitis Inhale 2 Puffs by mouth 2 times daily. 1 Each 0 05/18/2021 Active Active Problems No known active problems Encounters Date Type Department Care Team Description 04/30/2023 1:00 PM MAINTENANCE SPECIALIST Orders Only [facility] [address] [place] [address] 2 scans: (2-Ord) ECHO TTE COMPLETE WO CONTRAST ([id number]) 04/30/2023 Travel 04/12/2023 Telephone [facility] [address] [place] [address] Faby Roe, INSPECTOR BALL POINTS Screening 04/09/2023 Orders Only [facility] [address] [address] Hayden Kuo 1 scan: (1-Ord) ZIO FINAL REPORT 04/06/2023 8:02 AM MAINTENANCE SPECIALIST - 04/06/2023 11:59 PM MAINTENANCE SPECIALIST Hospital Encounter [facility] [address] [place] [address] Timur Guaman MD Transient cerebral ischemia, unspecified type 04/06/2023 Travel 04/05/2023 9:30 AM MAINTENANCE SPECIALIST Office Visit [facility] [address] [place] [address] Franci Mitchell MD 03/15/2023 Orders Only [facility] [address], [place] [address] Anuja Owen 1 scan: (1-Ord) Holter Report ([id number]) 03/11/2023 11:23 AM CDT - 03/11/2023 11:59 PM CDT Hospital Encounter [facility] [address], [place] [address] Faby Roe, INSPECTOR BALL POINTS from Last 3 Months Immunizations Name Administration Dates Next Due Influenza Virus, Unspecified 02/25/2018, 02/26/2017,01/31/2015,02/12/2014, 02/16/2012,03/16/2011,02/07/2010,03/04/2009, 03/24/2008 Influenza, IIV3 (Age 6-35 mos) 03/04/2009 Influenza, IIV3 (Age >=3 years) 02/16/2012,02/07 Influenza, IIV4 (=>6mos) MDV 01/31/2015 Tdap 03/24/2010 Family History Medical History Relation Name Comments Alzheimer's disease Father Lung cancer Father Good Health Sister Relation Name Status Comments Father Maternal Grandfather Maternal Grandmother Mother Alive Paternal Grandfather Paternal Grandmother Sister Alive Social History Tobacco Use Types Packs/Day Years Used Date Smoking Tobacco: Never Smokeless Tobacco: Never Tobacco Cessation:Counseling Given: No Alcohol Use Standard Drinks/Week Comments No 0 (1 standard drink = 0.6 oz pur e alcohol) very rare Social Connections Answer Date Recorded Frequency of Communication with Friends and Fami ly Not on file 04/05/2023 Sex and Gender Information Value Date Recorded Sex Assigned at Not on file Gender Identity Not on file Sexual Orientation Not on file Obstetrics History Last Filed Vital Signs Vital Sign Reading Time Taken Comments Blood Pressure 136/79 03/09/2023 7:20 PM CDT Pulse 69 03/09/2023 7:20 PM CDT Temperature 36.6 ??C (97.9 ??F) 03/09/2023 5:02 PM CD T Respiratory Rate 18 03/09/2023 5:02 PM CDT Oxygen Saturation 96% 03/09/2023 7:20 PM CDT Inhaled Oxygen Concentration - - Weight 102.1 kg (225 lb) 03/09/2023 5:02 PM CDT Height 167.6 cm (5' 6) 03/09/2023 5:02 PM CDT Body Mass Index 36.32 03/09/2023 5:02 PM CDT Plan of Treatment Health Maintenance Due Date Last Done Comments COVID-19 vaccine series (#1) 1967 Depression screening for age 12+ 1979 HIV for age 15-65 1982 Hepatitis C screening for age 18-79 1985 Pap test for age 21-65 01/15/1988 Colonoscopy through age 75 01/15/2012 Lipids for age 45-75 01/15/2012 Mammogram for age 45-75 01/15/2012 Zoster (shingles) series for age 50+ (1 of 2) 2017 BMI (ht and wt on same day) for age 18+ 07/01/2019 07/01/2018, 02/11/2017 Tetanus booster 03/24/2020 03/24/2010 Influenza for age 50-64 01/08/2023 02/26/20 18, 02/26/2017, 01/31/2015, Additional history exists Tdap Completed 03/24/2010 Pneumococcal series for age 6-64 Aged Out No longer eligible based on patient's age to complete this topic Medical Devices Implanted Type Area Documentation Clerk Device Identifier Shelf Expiration Date Model / Serial / Lot Screw Bone 2.5x18mm Mini Headed - [id number] Implanted:Qty: 2 on 04/04/2019 by Frandy Barrera DPM at [facility] Right: Foot [employer] [id number] / / Screw Bone 2.5x18mm Mini Headed - [id number] Implanted:Qty: 2 on 02/11/2021 by Frandy Barrera DPM at [facility] Left: [employer] [id number] / / Wire Kirs .[id number] Smoothx6/Pk 1644-10-000 Depuy/Cali - [id number] Implanted:Qty: 1 on 02/11/2021 by Frandy Barrera DPM at [facility] Left: Foot [employer] 0 / / Explanted Type Area Documentation Clerk Device Identifier Shelf Expiration Date Model / Serial / Lot Screw Bone 2.5x16mm Mini Headed - [id number] Explanted:Qty: 1 on 04/04/2019 by Frandy Barrera DPM at [facility] Right: [employer] [id number] / / K-Wire 2.5mm Non-Thrd Diameter 0.9 Mm - [id number] Explanted:Qty: 2 on 02/11/2021 by Frandy Barrera DPM at [facility] Left: Foot [employer] [id number] / / Procedures Procedure Name Priority Date/Time Associated Diagnosis Comments EXTENDED HOLTER Routine 05/04/2023 Palpitations ECHO TTE COMPLETE WO CONTRAST Routine 04/30/2023 1:41 PM MAINTENANCE SPECIALIST Arrhythmia MR HEAD BRAIN WO Routine 04/06/2023 8:48 AM MAINTENANCE SPECIALIST Transient cerebral ischemia, unspecified type HOLTER MONITOR 48 HOURS Routine 03/15/2023 12:00 AM MAINTENANCE SPECIALIST Fluttering sensation of heart from Last 3 Months Results * ZIO PATCH XT - weekly to monthly symptoms. (05/04/2023) Narrative Hayden Kuo-Wing - 05/04/2023 Patient enrolled with vendor this date for Extended Holter home enrollment, duration 14 days. Device will be mailed to patient by vendor. ??Report will be found in the Procedures tab approximately 7-10 days after end of monitor period. Franci Mitchell MD CARDIAC SERVICES ORD * ECHO TTE COMPLETE WO CONTRAST (04/30/2023 1:41 PM MAINTENANCE SPECIALIST) AORTIC VALVE MEAN PG 4 mmHg EJECTION FRACTION 59 % LVEDD 4.5 cm Anatomical Region Laterality Modality Ultrasound 04/30/2023 1:11 PM MAINTENANCE SPECIALIST Narrative 04/30/2023 2:01 PM MAINTENANCE SPECIALIST ECHOCARDIOGRAM ROYCE NAIK ?Accession#: ?? [id number] : ?1965 58 years Study Date: ?? 04/30/2023 1:11:54 PM Gender: F ? BP: ? 136/79 mmHg Height: 168.00 cm ? BSA: ?2.11 m? ? ? Weight: 102.00 kg ? Tech: ? MTS ?Referring MD: FRANCI MITCHELL Site: ? [facility] Reading Location: MOBILE OP Patient Location: Outpatient. Procedure: 2D, Color Doppler and Spectral Doppler. Indication for study: Arrhythmia Cardiac Rhythm: Regular.Study quality: Fair. Final Impressions: 1. Normal LV size, calculated EF of 59 %. 2. Normal RV size and systolic function. 3. No significant valvular disease. Comparison There are no prior studies on this patient for comparison purposes. Chamber Sizes and Function Normal left ventricular size, borderline wall thickness, normal global systolic function, calculated EF of 59 %. No definite resting regional wall motion abnormality seen. Left atrial size is normal. Right ventricular cavity size is normal, global systolic RV function is normal. RV wall thickness is normal. The right atrium is normal. Right atrial pressure is estimated to be normal. Right atrial volume index is 20 ml/m? ? ?. Right atrial area is 16 cm? ? ?. The pulmonary artery is of normal size and origin. The sinus of Valsalva is normal sized. The ascending aorta is normal sized. Valves, RV Pressures and Diastolic Function The aortic valve is normal in structure, no stenosis and no regurgitation. The mitral valve is normal in structure, no mitral regurgitation. Normal diastolic function. The tricuspid valve is normal in structure. Tricuspid regurgitation is regurgitation is not evident. The pulmonic valve is normal. No pulmonary regurgitation. Masses, Effusion, Shunts There is no pericardial effusion. The inferior vena cava is normal sized, respiratory size variation greater than 50%. No left to right shunting was detected by limited color flow Doppler interrogation of the interatrial septum. MEASUREMENTS AND CALCULATIONS 2-D Measurements and LV Function: LVID (d) 4.5 cm Planimetered EF 59 % LVID (s) 3.2 cm LV FS% (2D) ? 30 % IVS (d) ??0.9 cm LVOT diameter ?? 2.0 cm LVPW (d) 0.8 cm HR ?76 bpm Ao Sinus 3.2 cm LA Vol index ?21 ml/m2 Asc Ao ?? 3.1 cm RA Vol index ?20 ml/m2 LA ? 4.0 cm RA area ? 16 cm?RV Max 4C (d) ?? 3.0 cm Diastology: Mitral ?Tissue Doppler ?Pulmonary veins E Peak 0.8 m/s ??e', Septum ? 0.10 m/s Pulm s ?63.1 cm/s A Peak 0.6 m/s ??e', Lateral ?0.13 m/s Pulm d ?39.7 cm/s E/A ?1.4 ?E/e' Average ?? 7.14 ? Pulm s/d ratio ??1.59 DT ? 229 msec Aortic Valve: Vmax ? 1.3 m/s ??ATIYA (V) ?? 2.46 cm? ? ? VTI ?0.30 m ?? ATIYA (I) ?? 2.33 cm? ? ? LVOT V max 1.0 m/s ??Max PG ?7 mmHg LVOT VTI ?? 0.22 m ?? Mean PG ?? 4 mmHg SV ? 70 ml ?Dim Index 0.73 SV index ?? 33 ml/m? ? ? CO ?5.3 l/min ?CI ?2.5 l/min/m? ? ? Mitral Valve: MVA ?3.3 cm? ? ? MV P 1/2 66 msec Tricuspid Valve and estimated PA pressures: TAPSE 2.5 cm . This study was interpreted by an [facility] accredited facility. CC: [facility] ([facility]) [facility]. ??Final ?? Procedure Note Jose Del Cid MD - 04/30/2023 ECHOCARDIOGRAM ROYCE NAIK : 1965 58 years Study Date: 04/30/2023 1:11:54 PM Gender: F BP: 136/79 mmHg Height: 168.00 cm BSA: 2.11 m? ? ? Weight: 102.00 kg Tech: SHAKILA Referring MD: FRANCI MITCHELL Site: [facility] Reading Location: MOBILE OP Patient Location: Outpatient. Procedure: 2D, Color Doppler and Spectral Doppler. Indication for study: Arrhythmia Cardiac Rhythm: Regular.Study quality: Fair. Final Impressions: 1. Normal LV size, calculated EF of 59 %. 2. Normal RV size and systolic function. 3. No significant valvular disease. Comparison There are no prior studies on this patient for comparison purposes. Chamber Sizes and Function Normal left ventricular size, borderline wall thickness, normal globalsystolic function, calculated EF of 59 %. No definite resting regionalwall motion abnormality seen. Left atrial size is normal. Rightventricular cavity size is normal, global systolic RV function is normal.RV wall thickness is normal. The right atrium is normal. Right atrialpressure is estimated to be normal. Right atrial volume index is 20ml/m? ? ?. Right atrial area is 16 cm? ? ?. The pulmonary artery is of normalsize and origin. The sinus of Valsalva is normal sized. The ascendingaorta is normal sized. Valves, RV Pressures and Diastolic Function The aortic valve is normal in structure, no stenosis and no regurgitation.The mitral valve is normal in structure, no mitral regurgitation. Normaldiastolic function. The tricuspid valve is normal in structure. Tricuspidregurgitation is regurgitation is not evident. The pulmonic valve isnormal. No pulmonary regurgitation. Masses, Effusion, Shunts There is no pericardial effusion. The inferior vena cava is normal sized,respiratory size variation greater than 50%. No left to right shunting wasdetected by limited color flow Doppler interrogation of the interatrialseptum. MEASUREMENTS AND CALCULATIONS 2-D Measurements and LV Function: LVID (d) 4.5 cm Planimetered EF 59 % LVID (s) 3.2 cm LV FS% (2D) 30 % IVS (d) 0.9 cm LVOT diameter 2.0 cm LVPW (d) 0.8 cm HR 76 bpm Ao Sinus 3.2 cm LA Vol index 21 ml/m2 Asc Ao 3.1 cm RA Vol index 20 ml/m2 LA 4.0 cm RA area 16 cm? ? ? RV Max 4C (d) 3.0 cm Diastology: Mitral Tissue Doppler Pulmonary veins E Peak 0.8 m/s e', Septum 0.10 m/s Pulm s 63.1 cm/s A Peak 0.6 m/s e', Lateral 0.13 m/s Pulm d 39.7 cm/s E/A 1.4 E/e' Average 7.14 Pulm s/d ratio 1.59 DT 229 msec Aortic Valve: Vmax 1.3 m/s ATIYA (V) 2.46 cm? ? ? VTI 0.30 m ATIYA (I) 2.33 cm? ? ? LVOT V max 1.0 m/s Max PG 7 mmHg LVOT VTI 0.22 m Mean PG 4 mmHg SV 70 ml Dim Index 0.73 SV index 33 ml/m? ? ? CO 5.3 l/min CI 2.5 l/min/m? ? ? Mitral Valve: MVA 3.3 cm? ? ? MV P 1/2 66 msec Tricuspid Valve and estimated PA pressures: TAPSE 2.5 cm . This study was interpreted by an [facility] accredited facility. CC: [facility] (med records) [facility]. Final Franci Mitchell MD ECHO ORD * MR HEAD BRAIN WO (04/06/2023 8:48 AM MAINTENANCE SPECIALIST) Anatomical Region Laterality Modality BRAIN, HEAD Magnetic Resonan ce 04/06/2023 10:0 3 AM MAINTENANCE SPECIALIST Impressions 04/06/2023 10:03 AM MAINTENANCE SPECIALIST 1. No acute intracranial abnormality. 2. Mild global parenchymal volume loss and chronic small vessel ischemic changes. Dictated by Bill Hoang MD @ 04/06/2023 10:03:50 AM (Electronically Signed) Narrative 04/06/2023 10:03 AM MAINTENANCE SPECIALIST For Patients: ??As a result of the 21st Century Cures Act, medical imaging exams and procedure reports are released immediately into your electronic medical record. ??You may view this report before your referring provider. ??If you have questions, please contact your health care provider. INDICATION: Transient ischemic attacks. TECHNIQUE: Multisequence multiplanar MRI of the head without contrast. COMPARISON: Correlated with CT head dated March 09, 2023. FINDINGS: No evidence of recent or remote infarct or hemorrhage. Scattered T2/FLAIR hyperintensities in the periventricular and subcortical white matter, nonspecific, but typical of mild chronic small vessel ischemic changes. Mild global parenchymal volume loss with ex-vacuo prominence of the supratentorial ventricles. Flow voids of the larger intracranial arteries are patent. Bone marrow signal intensity of the calvarium is within normal limits. Orbits are unremarkable in appearance. Paranasal sinuses and mastoid air cells are predominantly clear. Procedure Note Migel Hoang MD - 04/06/2023 For Patients: As a result of the Cures Act, medical imagingexams and procedure reports are released immediately into your electronicmedical record. You may view this report before your referring provider.If you have questions, please contact your health care provider. INDICATION: Transient ischemic attacks. TECHNIQUE: Multisequence multiplanar MRI of the head without contrast. COMPARISON: Correlated with CT head dated March 09, 2023. FINDINGS: No evidence of recent or remote infarct or hemorrhage. Scattered T2/FLAIRhyperintensities in the periventricular and subcortical white matter,nonspecific, but typical of mild chronic small vessel ischemic changes. Mild global parenchymal volume loss with ex-vacuo prominence of thesupratentorial ventricles. Flow voids of the larger intracranial arteriesare patent. Bone marrow signal intensity of the calvarium is within normal limits.Orbits are unremarkable in appearance. Paranasal sinuses and mastoid aircells are predominantly clear. IMPRESSION: 1. No acute intracranial abnormality. 2. Mild global parenchymal volume loss and chronic small vessel ischemicchanges. Dictated by Bill Hoang MD @ 04/06/2023 10:03:50 AM (Electronically Signed) Timur Guaman MD MR * HOLTER MONITOR 48 HOURS (03/15/2023 12:00 AM MAINTENANCE SPECIALIST) Faby Roe NP CARDIAC SERVICES O RD from Last 3 Months Advance Directives Latest Code Status on File Code Status Date Activated Date Inactivated Comments Full Code 02/11/2021 6:09 AM 02/11/2021 1:58 PM Question Answer Comments Code Status Discussion: Not Discussed Code Status History Code Status Date Activated Date Inactivated Comments Full Code 04/04/2019 8:45 AM 04/04/2019 1:43 PM Care Teams Dance Entertainer Relationship Specialty Start Date End Date Faby Roe INSPECTOR BALL POINTS [address] [place] [address] PCP - General Emergency Medicine 03/10/23
--- OUTSIDE RECORDS SUMMARY | 2023-06-10 11:58 | XMS_ITS | Encounter Summary ---
Author Name Unknown Organization [facility] Address [address] [place] [address] Care Team Providers Care Electric Motor Mechanic Name Role Phone Janet Perez M.D. Primary Care Provider [phone] Reason for Visit * Reason Onset Date Comments Esophageal 09/17/2022 Med Question 09/17/2022 Encounter Details Date Type Department Care Team (Latest Contact Info) Description 09/17/2022 Clinical Communication Division of Gastroenterology in [place], [place] [address] [place] [phone] Pedro Cowan APRN, C.N.P., M.S. [address] [place] [phone] Esophageal; Med Question Social History Tobacco Use Types Packs/Day Years [...] often do you attend chur ch or sikh services? More than 4 times per year 10/25/2019 Do you belong to any clubs o r organizations such as mandaeism groups, unions, fraternal or athletic groups, or [...] Answer Date Recorded PHQ-2 Score 0 06/10/2022 [facility] - Occupational Stress Questionnaire Answer Date [...] encounter Miscellaneous Notes * Telephone Encounter - Selina Tyler R.N. - 09/17/2022 2:25 PM CDT SUBJECTIVE CHIEF COMPLAINT / REASON FOR CALL No chief complaint on file. Information Discussed Spoke with Mrs. Naik and discussed colon prep medications and taking it in a split dose. Velma will do the split dose but start it about 4pm and finish about 11pm the night prior since her reporttime is 6:45am. She is concerned about the drive to [place]. PLAN Disposition/Recommendation: recommended continue engagement in self-management activities Information/Education: patient/caller able to teach back Caller agreeable to plan of care: yes The following references were used: nursing clinical judgement documented in this encounter Plan of Treatment Not on file documented as of this encounter Visit Diagnoses Not on filedocumented in this encounter Additional Health Concerns Assessment Noted Time PHQ-9 Depression Total Score: 1 03/02/20 22 9:04 AM CDT documented as of this encounter Care Teams Electric Motor Mechanic Relationship Specialty Start Date End Date Janet Perez M.D. [address] [place] [phone] PCP - General 05/28/22 documented as of this encounter
--- OUTSIDE RECORDS SUMMARY | 2023-06-10 11:58 | XMS_ITS | Encounter Summary ---
Author Name Unknown Organization [facility] Address [address] [place] [address] Care Team Providers Care Hvac/R Instructor Name Role Phone Janet Perez M.D. Primary Care Provider [phone] Reason for Visit * Outpatient (Routine) - Closed Specialty Diagnoses / Procedures Referred By Maxim rivera Referred To Contact Diagnoses Preventive Gynecological Exam Leiomyoma (Fibroid) Uterus Procedures US Pelvis Transvaginal Ramirez Boggs Jr., M.D. [address] [address] [facility] Region Referral ID Status Reason Start Date Expiration Date Visits Re quested Visits Authorized [id number] Closed 06/10/2022 06/10/2023 1 1 Encounter Details Date Type Department Care Team (Latest Contact Info) Description 06/10/2022 9:50 AM LEGAL COUNSEL Ancillary Procedure Department of Obstetrics and Gynecology in [address] [phone] Ramirez Boggs Jr., M.D. [address] [address] Preventive Gynecological Exam; Leiomyoma (Fibroid) Uterus Social History Tobacco Use Types Packs/Day Years [...] often do you attend chur ch or presybeterian services? More than 4 times per year 10/25/2019 Do you belong to any clubs o r organizations such as uatsdin groups, unions, fraternal or athletic groups, or [...] Recorded PHQ-2 Score 0 06/10/2022 [facility] - Occupational [...] Procedure Name Priority Date/Time Associated Diagnosis Comments US PELVIS TRANSVAGINAL RAD - Routine (most inpatients and all outpatients) 06/10/2022 10:21 AM LEGAL COUNSEL Preventive Gynecological Exam Leiomyoma (Fibroid) Uterus documented in this encounter Results * US Pelvis Transvaginal (06/10/2022 10:21 AM LEGAL COUNSEL) Anatomical Region Laterality Modality Pelvis, Ultrasound RST LOS, Ultrasound ARZ LOS, Ultrasound FLA LOS N/A Ultrasound 06/10/2022 10:4 5 AM LEGAL COUNSEL Impressions 06/10/2022 10:47 AM LEGAL COUNSEL 6 total fibroids noted, largest just over 2 cm, previously noted anterior fundal fibroid is starting to calcify, to slightly smaller fibroids posteriorly are the most prominent area they appeared to be 2 separate small fibroids next to each other, ovaries not clearly seen. ??Thin endometrium and otherwise normal uterus. Narrative 06/10/2022 10:47 AM LEGAL COUNSEL EXAM: US PELVIS TRANSVAGINAL COMPARISON: TECHNIQUE: Transvaginal only. FINDINGS: Uterus: 3.4x5.7x8.3cm. . Myometrium: Normal. Endometrium: Normal. Thickness: 4 mm Right ovary: Normal. ??Ovarian volume: . Left ovary: Normal. ??Ovarian volume: . Intraperitoneal Fluid: None. Transvaginal exam performed to better visualize the adnexa. Procedure Note Ramirez Boggs Jr., M.D. - 06/10/2022 EXAM: US PELVIS TRANSVAGINAL COMPARISON: TECHNIQUE: Transvaginal only. FINDINGS: Uterus: 3.4x5.7x8.3cm. . Myometrium: Normal. Endometrium: Normal. Thickness: 4 mm Right ovary: Normal. Ovarian volume: . Left ovary: Normal. Ovarian volume: . Intraperitoneal Fluid: None. Transvaginal exam performed to better visualize the adnexa. IMPRESSION: 6 total fibroids noted, largest just over 2 cm, previously noted anteriorfundal fibroid is starting to calcify, to slightly smaller fibroids posteriorlyare the most prominent area they appeared to be 2 separate small fibroids next to each other, ovariesnot clearly seen. Thin endometrium and otherwise normal uterus. Ramirez Boggs Jr., M.D. IMG US PROCEDU RES documented in this encounter Visit Diagnoses Diagnosis Preventive Gynecological Exam Leiomyoma (Fibroid) Uterus documented in this encounter Additional Health Concerns Assessment Noted Time PHQ-9 Depression Total Score: 1 03/02/20 22 9:04 AM CDT documented as of this encounter Care Teams Hvac/R Instructor Relationship Specialty Start Date End Date Janet Perez M.D. [address] [phone] PCP - General 05/28/22 documented as of this encounter
--- OUTSIDE RECORDS SUMMARY | 2023-06-10 11:58 | XMS_ITS | Encounter Summary ---
Author Name Unknown Organization [facility] Address [address] [place] [address] Care Team Providers Care Mail Messenger Contractor Name Role Phone Janet Perez M.D. Primary Care Provider [phone] Reason for Visit * Reason Onset Date Comments After Visit Question 07/08/2022 Encounter Details Date Type Department Care Team (Latest Contact Info) Description 07/08/2022 Clinical Communication Division of Gastroenterology in [place], [place] [address] [place] [address] Pedro Cowan, PRINCESS, C.N.P., M.S. [address] [place] [address] After Visit Question Social History Tobacco Use Types Packs/Day [...] often do you attend chur ch or advent services? More than 4 times per year 10/25/2019 Do you belong to any clubs o r organizations such as christian groups, unions, fraternal or athletic groups, or [...] Answer Date Recorded PHQ-2 Score 0 06/10/2022 [facility] ional Health - [...] documented as of this encounter Care Teams Mail Messenger Contractor Relationship Specialty Start Date End Date Janet Perez M.D. NPGood: [id number] [address] [place] [phone] PCP - General 05/28/22 documented as of this encounter
--- OUTSIDE RECORDS SUMMARY | 2023-06-10 11:58 | XMS_ITS | Encounter Summary ---
Author Name Unknown Organization [facility] Address [address] [place] [address] Care Team Providers Care Scrum Project Manager Name Role Phone Janet Perez M.D. Primary Care Provider [phone] Reason for Referral * Outpatient (Routine) - Closed Specialty Diagnoses / Procedures Referred By Maxim rivera Referred To Contact Diagnoses Preventive Gynecological Exam Leiomyoma (Fibroid) Uterus Procedures US Pelvis Transvaginal Ramirez Boggs Jr., M.D. [address], [place] [address] [facility] Referral ID Status Reason Start Date Expiration Date Visits Re quested Visits Authorized [id number] Closed 06/10/2022 06/10/2023 1 1 IN HAND Reason for Visit * Reason Comments Annual Exam Encounter Details Date Type Department Care Team (Latest Contact Info) Description 06/10/2022 9:30 AM DRAW IN HAND Office Visit Department of Obstetrics and Gynecology in [address] [phone] Ramirez Boggs Jr., M.D. [address] [place] [address] Preventive Gynecological Exam (Primary Dx); Leiomyoma (Fibroid) Uterus; Incontinence Urinary Stress Female Discharge Disposition: Home or Self Care Social [...] How often do you attend chur or denominational services? More than 4 times per year 10/25/2019 Do you belong to any clubs o r organizations such as taoism groups, unions, fraternal or athletic groups, or [...] Answer Date Recorded PHQ-2 Score 0 06/10/2022 [place] [facility] - Occupational Stress [...] Sign Reading Time Taken Comments Blood Pressure 112/66 06/10/2022 9:14 AM DRAW IN HAND Pulse 68 06/10/2022 9:14 AM DRAW IN HAND Temperature - - Respiratory Rate 16 06/10/2022 9:14 AM DRAW IN HAND Oxygen Saturation - - Inhaled Oxygen Concentration - - Weight 99.6 kg (219 lb 7.5 oz) 06/10/2022 9:14 A M DRAW IN HAND Height 166 cm (5' 5.35) 06/10/2022 9:14 AM DRAW IN HAND Body Mass Index 36.13 06/10/2022 9:14 AM DRAW IN HAND documented in this encounter H&P Notes * Ramirez Boggs Jr., M.D. - 06/10/2022 9:30 AM CST SUBJECTIVE CHIEF COMPLAINT/REASON FOR VISIT Annual examination. HISTORY OF PRESENT ILLNESS Velma Naik is a 57 y.o. female with LMP of who presents today for her annual examination. She is postmenopausal without significant symptoms. She continues to be frustrated with her inability to lose weight. Bowel bladder function is fine although she does have some mild urinary frequency and is up once or twice a night. She is sexually active without difficulties long she uses adequate lubrication. Samples of Uber lube are given. She has history of uterine fibroids in the past this has not been followed up in the last 9 years. She would like ultrasound to assess these. She has had an asthma flare somewhat related to her being post COVID in the last couple months. Sheis going to discuss this with primary care. There are no further concerns at this time. ALLERGIES/CONTRAINDICATIONS Allergies Allergen Reactions Lisinopril Other (see comments) Pollen Extracts Other (see comments) Nasal symptoms Adhesive Tape-Silicones Rash Causes redness for days PREVENTATIVE SERVICES: Tobacco use: Negative Mammogram: Today Pap smear: Today Colon screenin04/22/2017 repeat in 2026 Lipid panel: 01/29/2021 Depression: negative screen. OBJECTIVE VITAL SIGNS BP 112/66 Pulse 68 Resp 16 Ht 166 cm Wt 99.6 kg LMP (LMP Unknown) BMI 36.13 kg/m?? PHYSICAL EXAMINATION General: Patient appears well groomed and well nourished. No acute distress. Oriented times three. Skin: Normal without any evidence of rash or lesions. Head: Normocephalic. ENT: Trachea midline. Lymph Nodes: Neck is supple. No significant adenopathy. Thyroid: Not enlarged. Regular in contour. Breasts: No masses. No lymphadenopathy. No nipple discharge. Bilateral fibrocystic changes upper outer quadrants Heart: Regular rate and rhythm without murmurs, rubs or gallops. No evidence of any peripheral vascular disease. Lungs: Clear to auscultation with good inspiratory effort. Abdomen: Soft and nontender. No masses, hepatosplenomegaly or hernias noted. No enlarged groin nodes palpable. Pelvis: Vagina and cervix appear normal without lesions, discharge or rashes. Pap smear is done. Uterus is midposition, small, mobile and nontender. Adnexa are without masses or tenderness. Limited exam due to body habitus. Rectum: Deferred. Genitalia: External genitalia: Bartholin's, urethral, and Rising Star's glands within normal limits. DIAGNOSTICS Transvaginal ultrasound shows 6 fibroids none of which are significant in incise all being under 2 cm. ovaries appeared to be obscured by bowel gas. ASSESSMENT / PLAN #1 Healthcare maintenance PLAN: Patient needs to continue working on weight loss and she is motivated to do so. There are multiple programs which are reasonable, suggested that she look into [facility]. Needs to continue working ondecreasing carbs and expanding her exercise and muscle building. #2 Contraception/menopause PLAN: Generally doing well. Probably better lubrication with intercourse would help. Also recommendadequate vitamin-D intake and increasing her weight-bearing exercise. She can work on extending theamount of time between voids which may help her sleep somewhat. #3 Follow up PLAN: Patient will return in one year or as needed. She will contact the clinic with any TAX CREDIT LEASING CONSULTANT related concerns. Other diagnosis #1 Preventive Gynecological Exam Overview: Pap smear is UTD, repeat next year. Mammogram is UTD, due in May. Colonoscopy is UTD, due for repeat 2026. Routine fasting labs are updated today as listed below. Encouraged her to exercise 4-5 times a week for 30-45 minutes. She is due for a tetanus booster, but we are out of this so she is encouraged to get this elsewhere. Orders: - ThinPrep w/HPV Co-Test Screen #2 Leiomyoma (Fibroid) Uterus Overview: Us 06/10/22: Other orders - US Pelvis Transvaginal; Future; Expected date: 06/10/2022 IN HAND documented in this encounter Miscellaneous Notes * Result Encounter Note - Ramirez Boggs Jr., M.D. - 06/19/2022 11:00 AM DRAW IN HAND Can you let her know pap is ok? She does not use computer. Message is ok. IN HAND documented in this encounter Plan of Treatment Not on file documented as of this encounter Procedures Procedure Name Priority Date/Time Associated Diagnosis Comments THINPREP W/HPV CO-TEST SCREEN Routine 06/10/2022 9:33 AM DRAW IN HAND Preventive Gynecological Exam HPV WITH GENOTYPING, PCR, THINPREP Routine 06/10/2022 9:33 AM DRAW IN HAND documented in this encounter Results * US Pelvis Transvaginal (06/10/2022 10:21 AM DRAW IN HAND) Anatomical Region Laterality Modality Pelvis, Ultrasound RST LOS, Ultrasound ARZ LOS, Ultrasound FLA LOS N/A Ultrasound 06/10/2022 10:4 5 AM DRAW IN HAND Impressions 06/10/2022 10:47 AM DRAW IN HAND 6 total fibroids noted, largest just over 2 cm, previously noted anterior fundal fibroid is starting to calcify, to slightly smaller fibroids posteriorly are the most prominent area they appeared to be 2 separate small fibroids next to each other, ovaries not clearly seen. ??Thin endometrium and otherwise normal uterus. Narrative 06/10/2022 10:47 AM DRAW IN HAND EXAM: US PELVIS TRANSVAGINAL COMPARISON: TECHNIQUE: Transvaginal [...] Boggs Jr., M.D. IMG US PROCEDU RES * HPV with Genotyping, PCR, ThinPrep (06/10/2022 9:33 AM DRAW IN HAND) HPV with Genotyping, ThinPrep, PCR Negative Negative 06/11/2022 2:19 PM DRAW IN HAND MKTO Comment: Negative for high risk HPV by nucleic acid amplification. ??The following high risk HPV types were not detected: 16, 18, 31, 33, 35, 39, 45, 51, 52, 56, 58, 59, 66, and 68 This result does not rule out HPV in the patient, as the sensitivity of the test depends on the timing of the specimen collection and the quality of the specimen. Result should be correlated with patient's history, clinical presentation, and TUBE COATER cytology report. 06/10/2022 9:33 AM DRAW IN HAND 06/11/2022 7:18 AM DRAW IN HAND Ramirez Boggs Jr., M.D. LAB MICROBIOLO GY - GENERAL ORDERABLES [facility] [address] [place] [address], [facility] [[email or web address]] MKTO [facility] [address] * ThinPrep w/HPV Co-Test Screen (06/10/2022 9:33 AM DRAW IN HAND) 06/17/2022 2:03 PM DRAW IN HAND [facility] Report electronically signed by PASTORA Fallon(ASCP) I verify that I have examined all relevant slides/materials for the specimen(s) and rendered or confirmed the diagnosis. 06/17/2022 2:03 PM DRAW IN HAND [facility] Gross Description Received specimen in a ThinPrep vial. 06/17/2022 2:03 PM DRAW IN HAND [facility] Pap Test Source Cervical/Endocervi lee 06/17/2022 2:03 PM DRAW IN HAND [facility] Clinical History Well woman 06/17/19 2:03 PM DRAW IN HAND [facility] Menstrual Status(LMP, PM, ) PM 06/17/2022 2:03 PM DRAW IN HAND [facility] Hormone Therapy/Contracep tives NONE 06/17/2022 2:03 PM DRAW IN HAND [facility] Interpretation Cervical/Endocervi lee ??(ThinPrep): Satisfactory for Evaluation Negative for Intraepithelial Lesion or Malignancy High Risk HPV: ??Negative Negative for High Risk HPV by nucleic acid amplification. The following High Risk HPV types were not detected: 16, 18, 31, 33, 35, 39, 45, 51, 52, 56, 58, 59, 66, and 68. 06/17/2022 2:03 PM DRAW IN HAND HK[facility] Thin Prep Vial (Cervix/Endocerv ix) 06/10/2022 9:33 AM DRAW IN HAND 06/11/2022 7:18 AM DRAW IN HAND Ramirez Boggs Jr., M.D. LAB PAP PATHDX ORDERABLES Performing Organization Address City/State/[facility] Co de Phone Number [facility] [address] [place] [phone], [facility] [address] [place] [phone] documented in this encounter Visit Diagnoses Diagnosis Preventive Gynecological Exam- Primary Leiomyoma (Fibroid) Uterus Incontinence Urinary Stress Female Preventive Gynecological Exam Leiomyoma (Fibroid) Uterus documented in this encounter Additional Health Concerns Assessment Noted Time PHQ-9 Depression Total Score: 1 03/02/20 22 9:04 AM CDT documented as of this encounter Care Teams Scrum Project Manager Relationship Specialty Start Date End Date Janet Perez M.D. [address] [place] [address] PCP - General 05/28/22 documented as of this encounter
[2023-06-10 14:32] LABS: SARS PCR* Negative SARS-CoV-2 (Negative)
== END 2023-06-10 11:56 | disposition home or self-care (01) ==
LOC: KYNREF 11:55
PROVIDERS: PCP Nurse Practitioner Family; Visit Provider Nurse Practitioner Family
DX: Z11.52 Encounter for screening for COVID-19 (principal); R05.9 Cough, unspecified
CPT/HCPCS: 87635

== ENCOUNTER 2023-11-16 12:00 | Outpatient (CLI) | payer BC, SELFPAY ==
--- OUTSIDE RECORDS SUMMARY | 2023-11-16 12:06 | XMS_ITS | Clinical Summary ---
Author Organization [facility] Address [address] [place] [address] Care Team Providers Care Kiln Mechanic Name Role Phone Janet Perez M.D. Primary Care Provider [phone] Source Comments Patient records contain information from all sites at [facility]. For routine questions regarding patient records, call [phone] during business hours, M-F 8:00 AM - 5:00 PM Central Time. Record requests for emergency care only can be directed to [phone] at any time.[facility] Allergies Active Allergy Reactions Criticality Noted Date Comments Adhesive Tape-Silicones Rash Low 03/30/2019 Causes redness for days Lisinopril Other (see comments) 08/12/2009 Naproxen Other (see comments) 08/12/2009 Rash and extreme itching Pollen Extracts Other (see comments) 12/06/2019 Nasal symptoms Medications Medication Sig Dispensed Refills Start Date End Date Status ACETAMINOPHEN ORAL Take 500 mg by mouth as needed. 11/04/2009 Active omeprazole (PriLOSEC OTC) [address] tablet Take 20 mg by mouth every morning before breakfast. Active ibuprofen (ADVIL,MOTRIN) 200 mg tablet Take 200 mg by mouth as needed for pain. Active loratadine (CLARITIN) 10 mg tablet Take 10 mg by mouth daily. Active multivitamin capsule Take 1 capsule by mouth daily. Active Ventolin HFA 90 mcg/actuation inhaler Inhale [...] hours prior to report time 4000 mL 07/13/2022 Active Additional Information Patient not taking.Reported on 08/26/2023 sodium,potassium,ma g sulfates (SUPREP BOWEL PREP) 17.5-3.13-1.6 gram solution PM: Mix one 6oz bottle w/water to 16oz line; drink all plus 32oz water over 1 hr. AM: Repeat; complete at least 2 hrs before appt. 1 kit 09/18/2022 Active Additional Information Patient not taking.Reported on 08/26/2023 cholecalciferol, vitamin D3, (Vitamin D3) 10 mcg (400 unit) capsule Take 400 Units by mouth. Active estradioL (VAGIFEM) 10 mcg vaginal tablet Insert 1 tablet (10 mcg) into vagina at bedtime for two weeks then at bedtime twice a week. 18 tablet 3 08/26/2023 Active Active Problems Problem Noted Date Diagnosed [...] 12/17/2019 Leiomyoma (Fibroid) Uterus 08/21/2009 0 06/10/2022 Encounters Date Type Department Care Team Description 08/26/2023 11:00 AM CDT Office Visit Department of Obstetrics and Gynecology in [place], [place] [address] [phone] Ramirez Boggs Jr., M.D. Leiomyoma (Fibroid) Uterus (Primary Dx); Preventive Gynecological Exam Discharge Disposition: Home or Self Care from Last 3 Months Immunizations Name Administration [...] often do you attend chur ch or amish services? More than 4 times per year 10/25/2019 Do you belong to any clubs o r organizations such as yarsani groups, unions, fraternal or athletic groups, or [...] PHQ-2 Answer Date Recorded PHQ-2 Score 0 08/26/2023 [facility] - Occupational Stress Questionnaire Answer Date [...] Sign Reading Time Taken Comments Blood Pressure 116/61 08/26/2023 10:43 AM CDT Pulse 73 10/06/2022 9:55 AM CDT Temperature 37 ??C (98.6 ??F) 10/06/2022 9:51 AM CDT Respiratory Rate 11 10/06/2022 9:55 AM CDT Oxygen Saturation 96% 10/06/2022 9:55 AM CDT Inhaled Oxygen Concentration - - Weight 104 kg (229 lb 0.9 oz) 08/26/2023 10:43 A M CDT Height 168 cm (5' 6.14) 08/26/2023 10:43 AM CDT Body Mass Index 36.81 08/26/2023 10:43 AM CDT Plan of Treatment Health Maintenance Due Date Last Done Comments CT Colonography 1965 Cologuard 1965 Pneumococcal vaccine (0-64 y ears) (1 of 2 - PCV) 1973 Hepatitis B Vaccines (1 of 3 - 19+ 3-dose series) 1986 Zoster Vaccines (1 of 2) 2017 COVID-19 Vaccine (1 - 2022-2 4 season) 2023 Influenza Vaccine (#1) 2024 9, 02/25/2018, 02/25/2018, Additional history exists Mammogram 08/04/2024 08/05/2023, 02/0 05/2022, 06/04/2021, Additional history exists Lipid (Cholesterol) Screening 01/29/2026 01/29/2021, 06/25/2016 Fasting Glucose for Diabetes Screening 03/09/2026 03/09/2023, 03/11/2022, 09/29/2021, Additional history exists Cervical Cancer Screening 06/10/20272022, 06/10/2022, 08/25/2018, Additional history exists Colonoscopy 10/07/2027 10/06/2022, 05, 04/22/2017 Colorectal Cancer Surveillance 10/07/2027 DTaP,Tdap,and Td Vaccines (3 - Td or Tdap) 09/30/2031 09/29/2021, 03/24/2010 HIV Screening Completed 08/31/2011 Hepatitis C Screening Completed 01/29/2021 Depression Screening (Annual PHQ-2) Completed 08/26/2023 Medical Devices Implanted Type Area Surveillance Systems Engineer Device Identifier Shelf Expiration Date Model / Serial / Lot Clp Rsp Hmst Endo 235 - [id number] Implanted:Qty: 1 on 01/18/2019 by Darlyn Gonzales M.D. at [facility] Person/[employer] Hardware e.g. pins/screws/ rods N/A: Other/Legacy - See Implant Description [employer] [id number] 02/26/2021 [id number] Clp Rsp Hmst Endo 235 - [id number] Implanted:Qty: 1 on 01/18/2019 by Darlyn Gonzales M.D. at [facility] Person/[employer] Hardware e.g. pins/screws/ rods N/A: Other/Legacy - See Implant Description [employer] [id number] 02/26/2021 [id number] Align Sling Retropubic - Rosario [id number] Implanted:Qty: 1 on 11/20/2014 Urogenital Implant Other/Legacy - See Implant Description Description:Device Manufactu rer - [employer] Patient Care Division. Body Location - Other. Not Applicable. Device Status Text - [id number]. Urologic Other Urologic Other Bladder Procedures Procedure Name Priority Date/Time Associated Diagnosis Comments BI BREAST SCREENING BILATERAL WITH TOMOSYNTHESIS RAD - Routine (most inpatients and all outpatients) 08/05/2023 8:34 AM CDT Screening Mammogram Breast Cancer EXTI BASIC METABOLIC PANEL, S/P Routine 03/09/2023 5:49 PM CDT COLONOSCOPY Routine 10/06/2022 7:39 AM CDT Polyp Colon Adenomatous Screening Cancer Colon HPV WITH GENOTYPING, PCR, THINPREP Routine 06/10/2022 9:33 AM BUS BOY HCV AB SCRN W/REFLEX TO HCV PCR, S Routine 01/29/2021 10:00 AM CDT Preventive Gynecological Exam LIPID PANEL, S Routine 01/29/2021 10:00 AM CDT Preventive Gynecological Exam HXZZORDERS Routine 08/31/2011 10:30 AM CDT from Last 3 Months or Most Recently Relevant to Health Maintenance Results * BI Breast Screening Bilateral with Tomosynthesis (08/05/2023 8:34 AM CDT) Anatomical Region Laterality Modality Breast, Breast Imaging RST L OS, Breast Imaging ARZ LOS, Breast Imaging FLA LOS Bilateral Mammography Impressions 08/05/2023 8:50 AM CDT Negative. RECOMMENDATION: ??Annual Screening Mammogram ASSESSMENT: ??BI-RADS: 1: Negative. Narrative 08/05/2023 8:50 AM CDT EXAM: ??BI BREAST SCREENING BILATERAL WITH TOMOSYNTHESIS Current study was evaluated with a Computer Aided Detection (CAD) system. INDICATION: ??Screening mammogram. COMPARISON: ??Prior exam(s) were available and reviewed for comparison. DENSITY: ??b. There are scattered areas of fibroglandular density. FINDINGS: ??No mammographic findings of malignancy. Procedure Note Clarke Luke M.D. - 08/05/2023 EXAM: BI BREAST SCREENING BILATERAL WITH TOMOSYNTHESIS Current study was evaluated with a Computer Aided Detection (CAD) system. INDICATION: Screening mammogram. COMPARISON: Prior exam(s) were available and reviewed for comparison. DENSITY: b. There are scattered areas of fibroglandular density. FINDINGS: No mammographic findings of malignancy. IMPRESSION: Negative. RECOMMENDATION: Annual Screening Mammogram ASSESSMENT: BI-RADS: 1: Negative. Janet Perez M.D. G BI PROCEDURES * Colonoscopy (10/06/2022 7:39 AM CDT) 10/06/2022 7:39 AM CDT Impressions PEPE BRENNANATION - 10/06/2022 9:04 AM CDT Post-op Diagnoses: ? - The examined portion of the ileum was normal. ? - One 4 mm flat polyp in the sigmoid colon, removed with a cold snare. ? Resected and retrieved. ? - The examination was otherwise normal. ? - Retroflexion in rectum not performed due to small size. Narrative PERSON [employer]ATION - 10/06/2022 9:04 AM CDT Jeffry 2 GI Patient Name: Velma Naik Date of : 1965 Age: 57 Gender: Female Procedure Date: 10/06/2022 Procedure: ? Colonoscopy Providers: ? Kristian Bartlett MD Referring Provider: ?Pedro Mohan Pre-op Diagnoses: ?High risk colon cancer surveillance: Personal ? history of colonic polyps Recommendation: ? - Await pathology results. ? - Repeat colonoscopy in 7-10 years for surveillance. ? - Return to physician assistant production manager. Findings: ? The perianal and digital rectal [...] preparation was evaluated using the BBPS ? ([place] Bowel Preparation Scale) with scores of: Right [...] Initiated On: 10/06/2022 7:39 AM Pedro Cowan APRN C.N.P., M.S. GI SC OCEDURE ORDERABLES Performing Organization Address [facility] Co de Phone Number [facility] NA * HPV with Genotyping, PCR, ThinPrep (06/10/2022 9:33 AM BUS BOY) HPV with Genotyping, ThinPrep, PCR Negative Negative 06/11/2022 2:19 PM BUS BOY MKTO Comment: Negative for high risk HPV [...] correlated with patient's history, clinical presentation, and KEYBOARD INSTRUMENT TUNER cytology report. 06/10/2022 9:33 AM BUS BOY 06/11/2022 7:18 AM BUS BOY Ramirez Boggs Jr., M.D. LAB MICROBIOLO GY - GENERAL ORDERABLES Performing Organization Address [facility] Co de Phone Number [facility] [address] [place] [address], [facility] MKTO [facility] [place] [address] * (ABNORMAL) Lipid Panel (01/29/2021 10:00 AM CDT) Cholesterol, Total 168 mg/dL 2020 2:01 PM CDT OWAT Comment: ----REFERENCE VALUE---- Desirable: < 200 Borderline high: 200 - 239 High: > or = 240 Triglycerides 69 mg/dL 01/29/2021 2:01 PM CDT OWAT Comment: ----REFERENCE VALUE---- Normal: <150 Borderline high: 150-199 High: 200-499 Very high: > or =500 Cholesterol, HDL 41(L) >=50 mg/dL 01/30/20 2:01 PM CDT OWAT Calculated LDL 113 mg/dL 01/29/2021 2:01 PM CDT OWAT Comment: ----REFERENCE VALUE---- Desirable: <100 mg/dL Above Desirable: 100-129 mg/dL Borderline High: 130-159 mg/dL High: 160-189 mg/dL Very High: >=190 mg/dL Cholesterol, Non-HDL, Calculated 127 mg/dL 01/29/2021 2:01 PM CDT OWAT Comment: ----REFERENCE VALUE---- Desirable: <130 Above Desirable: 130-159 Borderline high: 160-189 High: 190-219 Very high: > or =220 Blood (Blood, Venous) 01/29/2021 10:00 AM CDT 01/29/2021 1:24 PM CDT Ramirez Boggs Jr., M.D. LAB BLOOD ADD- ON [facility] [address] [place] [address], [facility] OWAT [facility] [place] [address] [place] [address] * HCV Ab Scrn w/Reflex to HCV PCR, Serum (01/29/2021 10:00 AM CDT) HCV Ab Screen, S Negative Negative 01/30/2021 8:23 AM CDT [facility] Comment:[id number] rat io is <1.00. Blood (Blood, Venous) 01/29/2021 10:00 AM CDT 01/30/2021 7:26 AM CDT Ramirez Boggs Jr., M.D. LAB MICROBIOLO GY - BLOOD ORDERABLES [facility] [address] [place] [address] [facility] Dept. of Laboratory Medicine and Pathology [address] [place] [address] * HXZZORDERS (08/31/2011 10:30 AM CDT) HIV-1/-2 Antibody Negative Negative POWERCHART Comment: If this test is ordered as a follow-up test to a reactive rapid HIV antibody test result, supplemental testing by Western blot is recommended, even when this test result is negative. Test Performed by: [facility] Dpt of Lab Med and Pathology [address] [place] [address] Beekeeper: Saúl Plascencia III, M.D. Blood 08/31/2011 10:3 0 AM CDT Ramirez Boggs Jr., M.D. LAB HISTORICAL ORDERS Performing Organization Address City/[facility]/ZIP Co de Phone Number POWERCHART from Last 3 Months or Most Recently Relevant to Health Maintenance Care Teams Kiln Mechanic Relationship Specialty Start Date End Date Janet Perez M.D. [address] [place] [phone] PCP - General 05/28/22
--- OUTSIDE RECORDS SUMMARY | 2023-11-16 12:06 | XMS_ITS ---
Author Organization [facility] Address [address] [place] [address] Care Team Providers Care Manufacturing Accountant Name Role Phone Unavailable Unavailable Unavailable Surgery Details Not on file Complications Check Surgery Details section. Procedure Estimated Blood Loss Check Surgery Details section. Procedure Findings Check Surgery Details section. Procedure Specimens Taken Check Surgery Details section.
--- OUTSIDE RECORDS SUMMARY | 2023-11-16 12:06 | XMS_ITS | Referral Summary ---
Author Organization [facility] Address [address] [place] [address] Care Team Providers Care Lye Boiler Name Role Phone Janet Perez M.D. Primary Care Provider [phone] Source Comments Patient records contain information from all sites at [facility]. For routine questions regarding patient records, call [phone] during business hours, M-F 8:00 AM - 5:00 PM Central Time. Record requests for emergency care only can be directed to [phone] at any time.[facility] Encounters Date Type Department Care Team Description 08/26/2023 11:00 AM CDT Office Visit Department of Obstetrics and Gynecology in [place], [place] [address] [place] [address] Ramirez Boggs Jr., M.D. Leiomyoma (Fibroid) Uterus (Primary Dx); Preventive Gynecological Exam Discharge Disposition: Home or Self Care from Last 3 Months Allergies Active Allergy Reactions Criticality Noted Date [...] often do you attend chur ch or holiness services? More than 4 times per year 10/25/2019 Do you belong to any clubs o r organizations such as zoroastrian groups, unions, fraternal or athletic groups, or [...] Answer Date Recorded PHQ-2 Score 0 08/[facility]/2023 [facility] - Occupational Stress Questionnaire Answer Date [...] 08/26/2023 10:43 AM CDT Plan of Treatment Not on file Medical Devices Implanted Type Area Dip Stand Loader Device Identifier Shelf Expiration Date Model / Serial / Lot [facility]p [facility] 235 - [id number] Implanted:Qty: 1 on 01/18/2019 by Darlyn Gonzales M.D. at [facility] Hardware e.g. pins/screws/ rods N/A: Other/Legacy - See Implant Description [employer] [id number] 02/26/2021 [id number] Clp [facility]sp [facility] Endo 235 - [id number] Implanted:Qty: 1 on 01/18/2019 by Darlyn Gonzales M.D. at [facility] Hard[facility] e.g. pins/screws/ rods N/A: Other/Legacy - See Implant Description [employer] [id number] 02/26/2021 [id number] 8 Align Sling Retropubic - Rosario [id number] Implanted:Qty: 1 on 11/20/2014 Urogenital Implant Other/Legacy - See Implant Description Description:Device Manufactu rer - [place] Patient Care Division. Body Location - Other. Not Applicable. Device Status Text - [id number]. Urologic Other Urologic Other Bladder Procedures Procedure [...] GENOTYPING, PCR, THINPREP Routine 06/10/2022 9:33 AM ARTIFICIAL FLY TIER HCV AB SCRN W/REFLEX TO HCV PCR, [...] ASSESSMENT: BI-RADS: 1: Negative. Janet Perez M.D. [facility] BI PROCEDURES * Colonoscopy (10/06/2022 7:39 AM CDT) 10/06/2022 7:39 AM CDT Impressions [facility] - 10/06/2022 9:04 AM CDT Post-op Diagnoses: ? - The examined portion of the ileum was normal. ? - One 4 mm flat polyp in the sigmoid colon, removed with a cold snare. ? Resected and retrieved. ? - The examination was otherwise normal. ? - Retroflexion in rectum not performed due to small size. Narrative [facility] - 10/06/2022 9:04 AM CDT Gonda [...] for surveillance. ? - Return to physician real estate assistant. Findings: ? The perianal and digital rectal [...] preparation was evaluated using the BBPS ? ([place] Bowel Preparation Scale) with scores of: Right [...] AM Pedro Cowan APRN, C.N.P., M.S. GI AR OCEDURE ORDERABLES [facility] NA * HPV with Genotyping, PCR, ThinPrep (06/10/2022 9:33 AM ARTIFICIAL FLY TIER) HPV with Genotyping, ThinPrep, PCR Negative Negative 06/11/2022 2:19 PM ARTIFICIAL FLY TIER MKTO Comment: Negative for high risk HPV [...] correlated with patient's history, clinical presentation, and BASTING MACHINE OPERATOR cytology report. 06/10/2022 9:33 AM ARTIFICIAL FLY TIER 06/11/2022 7:18 AM ARTIFICIAL FLY TIER Ramirez Boggs Jr., M.D. LAB MICROBIOLO GY - GENERAL ORDERABLES [facility] [address] [place] [address], [facility] MKTO [facility] [place] [address] [place] [address] * (ABNORMAL) Lipid Panel (01/29/2021 10:00 AM CDT) [facility] Signature Cholesterol, Total 168 mg/dL 2020 2:01 PM [...] Boggs Jr., M.D. LAB BLOOD ADD- ON [facility] [address] [place] [address], [place] [facility] [facility] [place] [address] [place] [address] * HCV Ab Scrn w/Reflex to HCV PCR, Serum (01/29/2021 10:00 AM CDT) HCV Ab Screen, S Negative Negative 01/30/2021 8:23 AM CDT [facility] Comment:Zzbbfr-vp-bohkcw rat io is <1.00. Blood (Blood, Venous) 01/29/2021 10:00 AM CDT 01/30/2021 7:26 AM CDT Ramirez Boggs Jr., M.D. LAB MICROBIOLO GY - BLOOD ORDERABLES [facility] [address] [place] [address] [facility] of [facility] Medicine and Pathology [address] [place] [address] * HXZZORDERS (08/31/2011 10:30 AM CDT) Pathologist [facility] [place] HIV-1/-2 Antibody Negative Negative POWERCHART Comment: If this test is ordered as a follow-up test to a reactive rapid HIV antibody test result, supplemental testing by Western blot is recommended, even when this test result is negative. Test Performed by: [facility] Dpt of Lab Med and Pathology [address] [place] [address] Calciner Feeder: Saúl Plascencia III, M.D. Blood 08/31/2011 10:3 0 AM CDT Ramirez Boggs Jr., M.D. LAB HISTORICAL ORDERS POWERCHART from Last 3 Months or Most Recently Relevant to Health Maintenance Care Teams Lye Boiler Relationship Specialty Start Date End Date Janet Perez M.D. [address] [facility] [place] [address] PCP - General 05/28/22
--- OUTSIDE RECORDS SUMMARY | 2023-11-16 12:06 | XMS_ITS | Continuity of Care Document ---
Author Organization [place] - [facility] [place] [facility] Address [address] [place] [address] Assessment Encounter Date Assessment Date Assessment LastModified by Organization Details LastModified Time 10/21/2023 10/21/2023 I did discussed findings with the patient. I did inform the patient that it is possible that the nails had likely go thick and the toe was sticking up that makes it rub under her shoe gear which causes the hematoma. I did debrided her toe as previously documented and put a gel pad to hold the 2nd toe down because it was dorsiflexed. We also modified her existing orthotics and added a valgus posting on the left to reduce rolling out and plantar callusing under the tailor's bunion. We will consider avulsion of nail on her follow if her symptoms still persist. [email or web address] Not available 10/26/2023 13:49:44 Plan of Treatment Reminders Order Date Submit Date Provider Last Modified By Organization Details Last Modified Time Details Appointments None record ed. Lab None record ed. Referral None record ed. Procedures None record ed. Surgeries None record ed. Imaging XR, foot, 3 or more view 024 10/26/19 24 [email or web address] [facility], [address] [place], [address], 09:38:31 Medication Orders None record ed. Patient TargetsNo targets recorded. Patient InstructionsNo instructions recorded. Reason for Referral None Reported. Results Created Date Observation Date Name Description Value Unit Range Abnormal Flag LastModifiedBy Organization Detail LastModifiedTime 10/26/19 24 XR, foot, 3 or more view No observ ation record ed. [email or web address] [facility] [address] [place], [address], 10/26/2023 13:52:08 Result Notes None recorded. 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 03/10/20 19 Acquired deformity of ankle AND/OR foot; Original Code: 987098774 O riginal Codesystem: SNOMED CT Classifi cation: Medical Con firmation Status: Confirmed Not Available [facility] 07/14/2022 09:15:05 Tailor's bunion of left foot Active 02/07/20 21 Tailor's bunion of left foot; Original Code: 3206467396 Original Codesystem: SNOMED CT Classifi cation: Medical Con firmation Status: Confirmed Not Available [facility] 07/14/2022 09:15:05 Acquired hallux malleus Active 02/07/20 Acquired hallux malleus; Original Code: 67846848 Or iginal Codesystem: SNOMED CT Classifi cation: Medical Con firmation Status: Confirmed Not Available [facility] 07/14/2022 09:15:05 Acquired hallux valgus Active 02/20/20 Acquired hallux valgus; Original Code: 759753987 O riginal Codesystem: SNOMED CT Classifi cation: Medical Con firmation Status: Confirmed Acquired hallux valgus; Original Code: 903286118 O riginal Codesystem: SNOMED CT Classifi cation: Medical Con firmation Status: Confirmed ; Start Date : 02/06/2021 Not Available [facility] 07/14/2022 09:15:05 Callosity Active 04/15/20 21 Callosity; Original Code: 581210181 O riginal Codesystem: SNOMED CT Classifi cation: Medical Con firmation Status: Confirmed Not Available [facility] 07/14/2022 09:15:05 Problem Notes None recorded. Procedures Surgical History Date Name Laterality Status Provider Name and Address Organization Details Recorded Time NAIL DEBRIDEMENT NAMRATA [facility] 10/26/2023 13:44:33 Imaging Results Imaging Date Name Status LastModified by Organiz ation Details LastModified Time 10/26/2023 XR, foot, 3 or more view active [email or web address] [facility] [address] [facility], [place], [address], 10/26/2023 13:52:08 Procedure Notes None recorded. Medical Equipment None Reported. Allergies Allergen ID Allergen Name Allergen Category Reaction Reaction Severity Criticality Documentation Date Start Date Code Code System Note Provider Name and Address Organization Details Recorded Time 17055 Prinivil medicatio n Not available Not available Not available 07/14/202299371 4 RxNorm Comme nt: React ion Class : Aller gy Al lergy Ident ifier : d0073 2 All ergy Categ ory: Multu m Drug Ident ifier Iden tifie r Assig lizette Autho rity: 66379 _[place]_F [place] ; Not Available [facility] 3 08:49:39 72867 Naprosyn medicatio n Not available Not available Not available 07/14/202220291 2 RxNorm Comme nt: React ion Class : Aller gy Al lergy Ident ifier : d0001 9 All ergy Categ ory: Multu m Drug Ident ifier Iden tifie r Assig lizette Autho rity: 74475 _[place]_F [place] ; Not Available [facility] 08:49:39 Medications Name Sig Start Date Stop Date Status Note LastModified by Organization Details LastModified Time cyclobenzapr ine 10 mg tablet TAKE 1 TABLET BY MOUTH THREE TIMES DAILY NEEDED FOR MUSCLE SPASM FOR 10 DAYS active Not Available Not Available No t Available prednisone 10 mg tablet TAKE 3 TABLETS BY MOUTH ONCE DAILY FOR 2 DAYS AND 2 ONCE DAILY FOR 2 DAYS AND 1 ONCE DAILY FOR 2 DAYS WITH A MEAL active Not Available Not Available No t Available albuterol sulfate 2.5 mg/3 mL (0.083 %) solution for nebulization USE 3 ML IN NEBULIZER EVERY 4 HOURS NEEDED FOR WHEEZING active Not Available Not Available No t Available azithromycin 250 mg tablet TAKE 2 TABLETS BY MOUTH ON DAY 1, AND THEN TAKE 1 TABLET BY MOUTH ONCE A DAY ON DAY 2 THROUGH DAY 5 active Not Available Not Available No t Available prednisone 20 mg tablet TAKE 1 TABLET BY MOUTH TWICE DAILY FOR 5 DAYS active Not Available Not Available No t Available amoxicillin 875 mg tablet TAKE 1 TABLET BY MOUTH TWICE DAILY FOR 10 DAYS active Not Available Not Available No t Available polymyxin B sulfate 10,000 unit-trimeth oprim 1 mg/mL eye drops active Not Available Not Available Not Available methylpredni solone 4 mg tablets in a dose pack TAKE BY MOUTH DIRECTED ON INSIDE OF PACKAGE active Not Available Not Available No t Available Ventolin HFA 90 mcg/actuatio n aerosol inhaler INHALE 2 PUFFS BY MOUTH EVERY 4 HOURS NEEDED FOR WHEEZING FOR SHORTNESS OF BREATH active Not Available Not Available No t Available Flovent HFA 44 mcg/actuatio n aerosol inhaler INHALE 2 PUFFS BY MOUTH TWICE DAILY - RINSE MOUTH WITH WATER AFTER USE TO REDUCE AFTERTASTE AND INCIDENCE OF CANDIDIASIS - DO NOT SWALLOW active Not Available Not Available No t Available Vitals None Recorded Social History None recorded. Functional Status None recorded. Mental Status None recorded. Family History Nothing Reported. Medical History No medical history recorded. Gynecological HistoryNo gynecological history recorded. Obstetrics History GPAL:G 0 P 0 0 0 0 Past Encounters Encounter ID Performer Location Encounter Start Date Encounter Closed Date Diagnosis/Indication Diagnosis SNOMED-CT Code [id number] Frandy Barrera DPM [facility] [address] [place] [address] 10/21/2023 14:51:04 10/27/2023 09:38:31 History of surgery [id number] Nail discoloration 63498 005 Health Concerns Section Related Observation LastModified by Organization Detai ls LastModified Time None Recorded Concern Status LastModified by Organization Details LastModified Time None Recorded Payers Encounter Date Sequence Insurance Name Policy Number Policy Elizondo Covered Member ID Elizondo Member ID Guarantor Name 10/21/2023 1 [place] Velma Naik [id number] Velma Naik Notes Date Note Type Note Provider Name and Address Organization Details Recorded Time 10/21/2023 text/html HPI Notes: Patie nt 58 y/o established patient female is here with concerns to her post of foot. Patient describes that her 2nd toenail turned black a year ago which has subsided, until last week it got sore and turned black again. Patient has previous history of bunionectomy, tailor's bunionectomy, and 2nd digit hammertoe repair all in the left in 2020. She was happy with the surgical outcome at this time but is concerned with the discoloration of the nail. Patient is here for definitive cares. Frandy Barrera DPM [address] [place], [address], [facility] - [facility] 10/26/2023 16:40:19 OBGyn Episode No OBEpisode recorded.
--- OUTSIDE RECORDS SUMMARY | 2023-11-16 12:06 | XMS_ITS | Data Portability ---
Author Organization [place] - [facility] [employer] Address [address] [place] [address] Assessment Encounter Date Assessment Date Assessment LastModified [...] 3 or more view 024 10/26/19 24 stephani [place] [facility], [address] [place], [address], 09:38:31 Medication Orders None record ed. Patient TargetsNo targets recorded. Patient InstructionsNo instructions recorded. Reason for Referral None Reported. Results Created Date Observation Date Name Description Value Unit Range Abnormal Flag LastModifiedBy Organization Detail LastModifiedTime 10/26/19 24 XR, foot, 3 or more view No observ ation record ed. [email or web address] [place] [facility] [address] [place], [address], 10/26/2023 13:52:08 Result Notes None recorded. 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 03/10/20 Acquired deformity of ankle AND/OR foot; Original Code: 828583424 O riginal Codesystem: SNOMED CT Classifi cation: Medical Con firmation Status: Confirmed Not Available [facility] 07/14/2022 09:15:05 Tailor's bunion of left foot Active 02/07/20 21 Tailor's bunion of left foot; Original Code: 2271663849 Original Codesystem: SNOMED CT Classifi cation: Medical Con firmation Status: Confirmed Not Available [facility] 07/14/2022 09:15:05 Acquired hallux malleus Active 02/07/20 Acquired hallux malleus; Original Code: 63201277 Or iginal Codesystem: SNOMED CT Classifi cation: Medical Con firmation Status: Confirmed Not Available [facility] 07/14/2022 09:15:05 Acquired hallux valgus Active 02/20/20 Acquired hallux valgus; Original Code: 616273693 O riginal Codesystem: SNOMED CT Classifi cation: Medical Con firmation Status: Confirmed Acquired hallux valgus; Original Code: 021812779 O riginal Codesystem: SNOMED CT Classifi cation: Medical Con firmation Status: Confirmed ; Start Date : 02/06/2021 Not Available [facility] 07/14/2022 09:15:05 Callosity Active 04/15/20 21 Callosity; Original Code: 137198565 O riginal Codesystem: SNOMED CT Classifi cation: Medical Con firmation Status: Confirmed Not Available [facility] 07/14/2022 09:15:05 Problem Notes None recorded. Procedures Surgical History Date Name Laterality Status Provider Name and Address Organization Details Recorded Time NAIL DEBRIDEMENT NAMRATA [facility] - [facility] 10/26/2023 13:44:33 Imaging Results Imaging Date Name Status LastModified by Organiz ation Details LastModified Time 10/26/2023 XR, foot, 3 or more view active [email or web address] [place] [facility] [address], [place], [address], 10/26/2023 13:52:08 Procedure Notes None recorded. Medical Equipment None Reported. Allergies Allergen ID Allergen Name Allergen Category Reaction Reaction Severity Criticality Documentation Date Start Date Code Code System Note Provider Name and Address Organization Details Recorded Time 71466 Prinivil medicatio n Not available Not available Not available 07/14/202287393 4 RxNorm Comme nt: React ion Class : Aller gy Al lergy Ident ifier : d0073 2 All ergy Categ ory: Multu m Drug Ident ifier Iden tifie r Assig lizette Autho rity: 91919 _[place] ; Not Available [facility] 3 08:49:39 74871 Naprosyn medicatio n Not available Not available Not available 07/14/202220291 2 RxNorm Comme nt: React ion Class : Aller gy Al lergy Ident ifier : d0001 9 All ergy Categ ory: Multu m Drug Ident ifier Iden tifie r Assig lizette Autho rity: 49893 _[place] ; Not Available [facility] 3 08:49:39 Medications Name Sig Start Date [...] Encounter Closed Date Diagnosis/Indication Diagnosis SNOMED-CT Code [id number] Frandy Barrera DPM [place] [facility] [address] [place] [address] 10/21/2023 14:51:04 10/27/2023 09:38:31 History of surgery [id number] Nail discoloration 06617 005 Health Concerns Section Related Observation LastModified by Organization Detai ls LastModified Time None Recorded Concern Status LastModified by Organization Details LastModified Time None Recorded Advance Directives Directive None Recorded Payers Encounter Date Sequence Insurance Name Policy Number Policy Elizondo Covered Member ID Elizondo Member ID Guarantor Name 10/21/2023 1 [place] Velma Naik [id number] Velma Naik Notes Date Note Type Note [...] Patient is here for definitive cares. Frandy Barrera, ROSALINDA [address] [place], [address], [facility] - [facility] 10/26/2023 16:40:19 OBGyn Episode No OBEpisode recorded.
--- OUTSIDE RECORDS SUMMARY | 2023-11-16 12:06 | XMS_ITS | Clinical Summary ---
Author Organization [employer] [facility] [employer] Address [place], [place] [address] Care Team Providers Care Line Crew Supervisor Name Role Phone Faby Roe LEAD INFORMATICA DEVELOPER Primary Care Provider [phone] Allergies Active Allergy Reactions Criticality Noted Date Comments Adhesive Tape-Silicones Erythema 03/30/2019 Bee Pollen Other - Describe In Comment Field Medium 12/06/2019 Nasal symptoms: Grass, cats, dogs, weeds, dust Naproxen Hives 02/11/2017 Lisinopril Palpitations 02/11/2017 Medications Medication Sig Dispensed Refills Start Date End Date Status albuterol HFA (Ventolin HFA) 90 mcg/actuation inhaler Inhale 2 Puffs by mouth every 4 hours if needed. 12/01/2020 Active loratadine (CLARITIN) 10 mg tablet Take 10 mg by mouth. Active multivitamin capsule Take 1 Capsule by mouth once daily. Active omeprazole (PRILOSEC-OTC) 20 mg tablet Take 20 mg by mouth. Active fluticasone propionate (Flovent HFA) 44 mcg/Actuation inhaler INHALE 2 PUFFS BY MOUTH TWICE DAILY FOR ASTHMA . USE THROUGH THE SUMMER DUE TO GRASS ALLERGY 12/01/2020 Active fluticasone propionate (FLOVENT) 44 mcg/Actuation inhalerIndications:Bro nchitis Inhale 2 Puffs by mouth 2 times daily. 1 Each 05/18/2021 Active albuterol 0.083% (2.5 mg/3 mL) neb solutionIndications:Wh eezing,Moderate persistent asthma with exacerbation Inhale 3 mL (2.5 mg) via a nebulizer every 4 hours if needed for Wheezing. 200 mL 06/18/2023 Active Cholecalciferol, Vitamin D3, 400 unit capsule Take 400 units by mouth. Active Active Problems No known active problems Immunizations Name Administration Dates Next Due Influenza [...] Sign Reading Time Taken Comments Blood Pressure 114/70 07/18/2023 10:57 AM CDT Pulse 85 07/18/2023 10:57 AM CDT Temperature 37 ??C (98.6 ??F) 07/18/2023 10:57 AM CDT Respiratory Rate 18 07/18/2023 10:57 AM CDT Oxygen Saturation 96% 07/18/2023 10:57 AM CDT Inhaled Oxygen Concentration - - Weight 103.4 kg (228 lb) 07/18/2023 10:57 AM CDT Height 167.6 cm (5' 6) 03/09/2023 5:02 PM CDT Body Mass Index 36.8 03/09/2023 5:02 PM CDT Plan of Treatment Health Maintenance Due Date Last Done Comments Pneumococcal series for age 6-64 (1 of 2 - PCV) 1973 Depression screening for age 12+ 1979 HIV for age 15-65 1982 Hepatitis C screening for ag e 18-79 1985 Pap test for age 21-65 01/15/1988 Colonoscopy through age 75 01/15/2012 Lipids for age 45-75 01/15/2012 Mammogram for age 45-75 01/15/2012 Zoster (shingles) series for age 50+ (1 of 2) 2017 BMI (ht and wt on same day) for age 18+ 07/01/2019 07/01/2018, 02/11/2017 Tetanus booster 03/24/2020 03/24/2010 COVID-19 vaccine series (2022- season) 2023 Influenza for age 50-64 01/09/2024 02/26/20 18, 02/26/2017, 01/31/2015, Additional history exists Tdap Completed 03/24/2010 Medical Devices Implanted Type Area [employer] Liaison Officer Device Identifier Shelf Expiration Date Model / Serial / Lot Screw Bone 2.5x18mm Mini Headed - [id number] Implanted:Qty: 2 on 04/04/2019 by Frandy Barrera DPM at [facility] Right: Foot [employer] [id number] / / Screw Bone 2.5x18mm Mini Headed - [id number] Implanted:Qty: 2 on 02/11/2021 by Frandy Barrera DPM at [facility] Left: Foot [employer] [id number] / / Wire Kirs .[id number] Smoothx6/Pk 1643-10- Depuy/Cali - [id number] Implanted:Qty: 1 on 02/11/2021 by Frandy Barrera DPM at [facility] Left: Foot [employer] 0 / / Explanted Type Area [employer] Liaison Officer Device Identifier Shelf Expiration Date Model / Serial / Lot Screw Bone 2.5x16mm Mini Headed - [id number] Explanted:Qty: 1 on 04/04/2019 by Frandy Barrera DPM at [facility] Right: Foot [employer] [id number] / / K-Wire 2.5mm Non-Thrd Diameter 0.9 Mm - [id number] Explanted:Qty: 2 on 02/11/2021 by Frandy Barrera DPM at [facility] Left: Foot [employer] [id number] / / Advance Directives * Full Code (Latest Code Status on File) Date Activated Date Inactivated Comments 02/11/2021 6:09 AM 02/11/2021 1:58 PM Question Answer Comments Code Status Discussion: Not Discussed * Full Code Date Activated Date Inactivated Comments 04/04/2019 8:45 AM 04/04/2019 1:43 PM Care Teams Line Crew Supervisor Relationship Specialty Start Date End Date Faby oRe LEAD INFORMATICA DEVELOPER [address] [place] [address] PCP - General Emergency Medicine 03/10/23
--- OUTSIDE RECORDS SUMMARY | 2023-11-16 12:06 | XMS_ITS | Encounter Summary ---
Author Organization [facility] Address [address] [place] [address] Care Team Providers Care Medical Physics Researcher Name Role Phone Janet Perez M.D. Primary Care Provider [phone] Reason for Visit * Reason Comments WWE * Appointment Request (Routine) - Closed Specialty Diagnoses / Procedures Referred By Contac t Referred To Contact Obstetrics and Gynecology Referral ID Status Reason Start Date Expiration Date Visits Re quested Visits Authorized [id number] Closed 08/05/2023 08/04/2024 1 1 Encounter Details Date Type Department Care Team (Latest Contact Info) Description 08/26/2023 11:00 AM CDT Office Visit Department of Obstetrics and Gynecology in [place], [place] [address] [address] Ramirez Boggs Jr., M.D. [address] [place] [phone] Leiomyoma (Fibroid) Uterus (Primary Dx); Preventive Gynecological Exam Discharge Disposition: Home or Self Care Social [...] often do you attend chur ch or rastafarian services? More than 4 times per year 10/25/2019 Do you belong to any clubs o r organizations such as lutheran groups, unions, fraternal or athletic groups, or [...] Answer Date Recorded PHQ-2 Score 0 08/26/2023 [facility] [place] of Occupat ional Health - Occupational Stress [...] Pressure 116/61 08/26/2023 10:43 AM CDT Pulse - - Temperature - - Respiratory Rate - - Oxygen Saturation - - Inhaled Oxygen Concentration - - Weight 104 kg (229 lb 0.9 oz) 08/26/2023 10:43 A M CDT Height 168 cm (5' 6.14) 08/26/2023 10:43 AM CDT Body Mass Index 36.81 08/26/2023 10:43 AM CDT documented in this encounter H&P Notes * Ramirez Boggs Jr., M.D. - 08/26/2023 11:00 AM CDT SUBJECTIVE CHIEF COMPLAINT/REASON FOR VISIT Annual examination. HISTORY OF PRESENT ILLNESS Velma Naik is a 58 y.o. female with LMP of 10 years ago who presents today for her annual examination. She continues to struggle with weight but starting back on [place] and increased activity. Bowel bladder function is fine she had a bout of bronchitis and asthma flare up and had some issues with leakage at the time but has having no stress incontinence currently. She is status post a sling. She does feel like sometimes she has a little bit of urine left after she voids. Discussed double voiding. Sexual intercourse is fine as long she is adequate lubrication. We discussedvaginal estrogen and she wants to try that. She has been evaluated for possible stroke which was negative and irregular heartbeat saw Cardiology and workup was negative. Continues occasionally having symptoms of irregular heartbeat and feelingbriefly like she is going to pass out but that only lasts for a few seconds. There are no further concerns at this time. ALLERGIES/CONTRAINDICATIONS Allergies Allergen Reactions Lisinopril Other (see comments) Naprosyn [Naproxen] Other (see comments) Rash and extreme itching Pollen Extracts Other (see comments) Nasal symptoms Adhesive Tape-Silicones Rash Causes redness for days PREVENTATIVE SERVICES: Tobacco use: Negative Mammogram: 04/16/2023 Pap smear: 2022 Colon screenin10/06/2022 Lipid panel: 2020 Depression: Negative OBJECTIVE VITAL SIGNS BP 116/61 (BP Location: Left arm, Patient Position: Sitting, Cuff Size: Large) Ht 168 cm Wt 104kg LMP (LMP Unknown) BMI 36.81 kg/m?? PHYSICAL EXAMINATION General: Patient appears well groomed and well nourished. No acute distress. Oriented times three. Skin: Normal without any evidence of rash or lesions. Head: Normocephalic. ENT: Trachea midline. Lymph Nodes: Neck is supple. No significant adenopathy. Thyroid: Not enlarged. Regular in contour. Breasts: No masses. No lymphadenopathy. No nipple discharge. Somewhat pendulous breasts with some small skin tags. Heart: Regular rate and rhythm without murmurs, rubs or gallops. No evidence of any peripheral vascular disease. Lungs: Clear to auscultation with good inspiratory effort. Abdomen: Soft and nontender. No masses, hepatosplenomegaly or hernias noted. No enlarged groin nodes palpable. Pelvis: Vagina and cervix appear normal without lesions, discharge or rashes. Pap smear is done. Uterus is anteverted, small, mobile and nontender. Adnexa are without masses or tenderness. No sign ofsling movement or erosion good UV angle support. Minimal cystocele no other pelvic prolapse. Rectum: Deferred. Genitalia: External genitalia: Bartholin's, urethral, and Whetstone's glands within normal limits. DIAGNOSTICS None ASSESSMENT / PLAN #1 Healthcare maintenance PLAN: Needs to increase her muscle building activity and have better dietary habits and is aware ofthis and working on it. Otherwise generally good health habits. Vitamin-D was normal in 2020 advised on making sure she is getting adequate dietary calcium and vitamin-D. #2 Contraception/menopause PLAN: Vaginal atrophy with some mild bladder symptoms. Will start her on estrogen vaginally. Otherwise has managed menopause well with the exception of weight gain. #3 Follow up PLAN: Patient will return in one year or as needed. She will contact the clinic with any HOSPITAL NURSE related concerns. Other diagnosis #1 Leiomyoma (Fibroid) Uterus Overview: Us 06/10/22: Diffuse fibroids throughout myometrium, posterior fibroid distorts endometrium slightly.No fibroids over 2 cm noted. Some calcifications seen. She has a normal thin endometrium. #2 Preventive Gynecological Exam Overview: Pap smear is [...] she is encouraged to get this elsewhere. documented in this encounter Plan of Treatment Not on file documented as of this encounter Visit Diagnoses Diagnosis Leiomyoma (Fibroid) Uterus- Primary Preventive Gynecological Exam documented in this encounter Additional Health Concerns Assessment Noted Time PHQ-9 Depression Total Score: 1 03/02/20 22 9:04 AM CDT documented as of this encounter Care Teams Medical Physics Researcher Relationship Specialty Start Date End Date Janet Perez M.D. [address] [place] [address] PCP - General 05/28/22 documented as of this encounter
== END 2023-11-16 12:01 | disposition home or self-care (01) ==
LOC: KYNREF 12:01
PROVIDERS: PCP Nurse Practitioner Family; Visit Provider Nurse Practitioner Family
DX: R39.15 Urgency of urination (principal); B96.20 Unspecified Escherichia coli [E. coli] as the cause of diseases classified elsewhere
CPT/HCPCS: 81001; 87086; 87186

== ENCOUNTER 2024-02-10 11:29 | Outpatient (CLI) | payer BC, SELFPAY ==
--- OUTSIDE RECORDS SUMMARY | 2024-02-10 11:35 | XMS_ITS | Clinical Summary ---
Author Organization [facility] Address [address] [place] [address] Care Team Providers Care Airport Maintenance Laborer Name Role Phone Janet Perez M.D. Primary Care Provider [phone] Source Comments Patient records contain information from all sites at [facility]. For routine questions regarding patient records, call [phone] during business hours, M-F 8:00 AM - 5:00 PM Central Time. Record requests for emergency care only can be directed to [phone] at any time.[facility] Allergies Active Allergy Reactions Criticality Noted Date [...] swallow. 10.6 g 3 04/08/2022 Active polyethylene glycol-electrolyte s (GoLYTELY) 236-22.74-6.74 -5.86 gram solution Drink 1st portion of prep at 6 PM the evening before. 2nd portion must be started 3 hours before and finished 2 hours prior to report time 4000 mL 07/13/2022 Active Additional Information Patient not taking.Reported on 08/26/2023 sodium,potassium,m ag sulfates (SUPREP BOWEL PREP) 17.5-3.13-1.6 gram solution [...] a week. 18 tablet 3 08/26/2023 Active FLUoxetine (PROzac) 10 mg capsule Take 1 capsule (10 mg total) by mouth daily. 30 capsule 3 12/15/2023 Active Active Problems Problem Noted Date Diagnosed Date Leiomyoma (Fibroid) Uterus 06/10/2022 Overview (06/10/2022): Us 06/10/22: Diffuse fibroids throughout myometrium, posterior fibroid distorts endometrium slightly. No fibroids over 2 cm noted. Some calcifications seen. She has a normal thin endometrium. Asthma Mild Persistent 03/02/2022 Preventive Gynecological Exam 01/29/2021 Overview (01/29/2021): Pap smear is UTD, repeat next year. [...] get this elsewhere. Apnea Sleep Obstructive 03/23/2019 Overview (01/29/2021): On CPAP. Obesity Body Mass Index 30-39.9 Adult 05/27/2017 Migraine Headache 03/18/2017 Fatigue Chronic 03/18/2017 Incontinence Urinary Stress Female 10/02/2014 Overview (06/10/2022): Status post mid urethral sling and doing well. Mild frequency patient will work on bladder training. Esophagitis Eosinophilic 11/16/2012 Anxiety 11/14/2010 Gastro-Esophageal Reflux Dis ease With Esophagitis Without Bleeding 11/14/2010 Resolved Problems Problem Noted Date Diagnosed Date Resolved Date Chronic Cough 03/18/2017 12/17/2019 Anemia 11/14/2010 12/17/2019 Leiomyoma (Fibroid) Uterus 08/21/2009 0 06/10/2022 Encounters Date Type Department Care Team Description 12/15/2023 Clinical Communication Department of Obstetrics and Gynecology in [address] [phone] Ramirez Boggs Jr., M.D. from Last 3 Months Immunizations Name Administration Dates Next Due Influenza TIV (IM) 02/16/2012,02/07/2010 Influenza, Injectable, Quadrivalent 01/31/2015 Influenza, Seasonal, Injectable 02/16/2012,02/07 Influenza, Unspecified 02/25/2018,2016,01/31/2015,2013,02/16/2012,03/16/2011,02/07/2010,1 ,03/24/2008 Tdap 09/29/2021,03/24/2010 influenza trivalent vaccine (6 months and older)(PF) 03/04/2009 influenza vaccine quad (FLUZONE/FLUARIX) (6 months and [...] any clubs o r organizations such as latter day groups, unions, fraternal or athletic groups, or [...] Answer Date Recorded PHQ-2 Score 0 [facility]/2023 [facility] - Occupational Stress Questionnaire Answer Date [...] of 2) 2017 COVID-19 Vaccine (1 - 2023-2 5 season) 2024 Influenza Vaccine (#1) 2024 9, 02/25/2018, 02/25/2018, Additional history exists Mammogram 08/04/2024 08/05/2023, 02/05/2022, 06/04/2021, Additional history exists Lipid (Cholesterol) Screening [...] Completed 08/26/2023 Medical Devices Implanted Type Area Pediatric Audiologist Device Identifier Shelf Expiration Date Model / Serial / Lot Clp Rsp Hmst Endo 235 - [id number] Implanted:Qty: 1 on 01/18/2019 by Darlyn Gonzales M.D. at [facility] Person/Gonda Hardware e.g. pins/screws/ rods N/A: Other/Legacy - See Implant Description [employer] [id number] 02/26/2021 [id number] 8 Clp Rsp Hmst Endo 235 - [id number] Implanted:Qty: 1 on 01/18/2019 by Darlyn Gonzales M.D. at [facility] Person/[employer]onda Hardware e.g. pins/screws/ rods N/A: Other/Legacy - See Implant Description [employer] [id number] 02/26/2021 [id number] 8 Align Sling Retropubic - Rosario [id number] Implanted:Qty: 1 on 11/20/2014 Urogenital Implant Other/Legacy - See Implant Description [employer] Description:Device Manufactu rer - [employer] Patient Care Division. Body Location - Other. Not Applicable. Device Status Text - [id number]. Urologic Other Urologic Other Bladder Procedures Procedure Name Priority Date/Time Associated Diagnosis Comments BI BREAST SCREENING BILATERAL WITH TOMOSYNTHESIS RAD - Routine (most inpatients and all outpatients) 08/05/2023 8:34 AM CDT Screening Mammogram Breast Cancer COLONOSCOPY Routine 10/06/2022 7:39 AM CDT Polyp Colon Adenomatous Screening Cancer Colon HPV WITH GENOTYPING, PCR, THINPREP Routine 06/10/2022 9:33 AM YIELD CLERK BASIC METABOLIC PANEL, S/P Routine 03/11/2022 11:33 AM CDT Headache Chronic HCV AB SCRN W/REFLEX TO HCV PCR, [...] Screening Mammogram ASSESSMENT: BI-RADS: 1: Negative. Janet PAEZ BI PROCEDURES * Colonoscopy (10/06/2022 7:39 AM CDT) 10/06/2022 7:39 AM CDT Impressions PERSON [employer]ATION - 10/06/2022 9:04 AM CDT Post-op Diagnoses: ? - The examined portion of the ileum was normal. ? - One 4 mm flat polyp in the sigmoid colon, removed with a cold snare. ? Resected and retrieved. ? - The examination was otherwise normal. ? - Retroflexion in rectum not performed due to small size. Narrative PERSON [employer] - 10/06/2022 9:04 AM CDT Gonda 2 [...] for surveillance. ? - Return to physician dental assistant instructor. Findings: ? The perianal and digital rectal [...] preparation was evaluated using the BBPS ? ([place] Bowel Preparation Scale) with scores of: Right [...] AM Pedro Cowan APRN C.N.P., M.S. GI [place] OCEDURE ORDERABLES Performing Organization Address City/[facility] Co de Phone Number [facility] * HPV with Genotyping, PCR, ThinPrep (06/10/2022 9:33 AM YIELD CLERK) HPV with Genotyping, ThinPrep, PCR Negative Negative 06/11/2022 2:19 PM YIELD CLERK MKTO Comment: Negative for high risk HPV [...] correlated with patient's history, clinical presentation, and NEW CAR SALESPERSON cytology report. 06/10/2022 9:33 AM YIELD CLERK 06/11/2022 7:18 AM YIELD CLERK Ramirez Boggs Jr., M.D. LAB MICROBIOLO GY - GENERAL ORDERABLES Performing Organization Address City/[facility] Co de Phone Number [facility] [place] [address], [facility] MKTO [facility] [place] [address] [place] [address] * Basic Metabolic Panel (03/11/2022 11:33 AM CDT) Potassium, P 4.2 3.6 - 5.2 mmol/L 03/11/2022 1:58 PM CDT OWAT Sodium, P 140 135 - 145 mmol/L 03/11/2022 1:58 PM CDT OWAT Chloride, P 101 98 - 107 mmol/L 03/11/2022 1:58 PM CDT OWAT Bicarbonate, P 26 22 - 29 mmol/L 03/11/2022 1:58 PM CDT OWAT Anion Gap, P 13 7 - 15 03/11/2022 1:58 PM CDT OWAT BUN (Blood Urea Nitrogen), P 10 6 - 21 mg/dL 03/11/2022 1:58 PM CDT OWAT Creatinine 0.73 0.59 - 1.04 mg/dL 03/11/2022 1:58 PM CDT OWAT Estimated GFR (eGFR) >90 >=60 mL/min/BSA 03/11/2022 1:58 PM CDT OWAT Comment: Estimated GFR calculated using the 2020 CKD_EPI creatinine equation. Calcium, Total, P 9.1 8.6 - 10.0 mg/dL 03/11/2022 1:58 PM CDT OWAT Glucose, P 111 70 - 140 mg/dL 03/11/2022 1:58 PM CDT OWAT Blood (Blood, Venous) 03/11/2022 11:33 AM CDT 03/11/2022 1:29 PM CDT Lizy Law M.D. LAB BLOOD ADD-ON [facility] [address] [place] [address], [facility] OWAT [facility] [place] [address] [place] [address] * (ABNORMAL) Lipid Panel (01/29/2021 10:00 AM [...] Boggs Jr., M.D. LAB BLOOD ADD- ON [facility] [address] [place] [address], [facility] OWAT [facility] in [place] [address] [place] [address] * HCV Ab Scrn w/Reflex to HCV PCR, Serum (01/29/2021 10:00 AM CDT) HCV Ab Screen, S Negative Negative 01/30/2021 8:23 AM CDT [facility] Comment:[id number] rat io is <1.00. Blood (Blood, Venous) 01/29/2021 10:00 AM CDT 01/30/2021 7:26 AM CDT Ramirez Boggs Jr., M.D. LAB MICROBIOLO GY - BLOOD ORDERABLES [facility] [address] [place] [address] [facility] Dept. of Laboratory Medicine and Pathology [address] [place] [address] * HXZZORDERS (08/31/2011 10:30 AM CDT) HIV-1/-2 Antibody Negative Negative POWERCHART Comment: If this test is ordered as a follow-up test to a reactive rapid HIV antibody test result, supplemental testing by Western blot is recommended, even when this test result is negative. Test Performed by: [facility] Dpt of Lab Med and Pathology [address] [place] [address] Field Laboratory Operator: Saúl Plascencia III, M.D. Blood 08/31/2011 10:3 0 AM CDT Ramirez Boggs Jr., M.D. LAB HISTORICAL ORDERS POWERCHART from Last 3 Months or Most Recently Relevant to Health Maintenance Care Teams Airport Maintenance Laborer Relationship Specialty Start Date End Date Janet Perez M.D. [address] [facility] [phone] PCP - General 05/28/22
--- OUTSIDE RECORDS SUMMARY | 2024-02-10 11:36 | XMS_ITS | Encounter Summary ---
Author Organization [facility] Address [address] [place] [address] Care Team Providers Care Continuous Crusher Operator Name Role Phone Janet Perez M.D. Primary Care Provider Encounter Details Date Type Department Care Team (Late st Contact Info) Description 12/15/2023 Clinical Communication Department of Obstetrics and Gynecology in [place], [place] [address] [place] [address] Ramirez Boggs Jr., M.D. [address] [place] [address] Social History Tobacco Use Types [...] often do you attend chur ch or orthodoxy services? More than 4 times per year 10/25/2019 Do you belong to any clubs o r organizations such as adventist groups, unions, fraternal or athletic groups, or [...] Answer Date Recorded PHQ-2 Score 0 08/26/2023 [facility] of Occupat ional Health [...] encounter Miscellaneous Notes * Telephone Encounter - Nayana Echevarria R.N. - 12/16/2023 8:42 AM CDT Patient notified that prescription was sent to the pharmacy * Telephone Encounter - Nayana Echevarria R.N. - 12/15/2023 11:41 AM CDT Patient feels stressed out and overwhelmed. Has taken Prozac before an it has helped. Thought she could take care of things at home by herself and has been exercising but she is wanting something to help her get this through this rough period. Kids are home from the summer and one has ADD and they took him off his medication so that has added to some of the stress. ELEANOR 7 =4, denied any depressionsymptoms. documented in this encounter Plan of Treatment Not on file documented as of this encounter Visit Diagnoses Not on filedocumented in this encounter Additional Health Concerns Assessment Noted Time PHQ-9 Depression Total Score: 1 03/02/20 22 9:04 AM CDT documented as of this encounter Care Teams Continuous Crusher Operator Relationship Specialty Start Date End Date Janet Perez M.D. [address] [place] [phone] PCP - General 05/28/22 documented as of this encounter
--- OUTSIDE RECORDS SUMMARY | 2024-02-10 11:36 | XMS_ITS ---
Author Organization [facility] Address [address] [place] [address] Care Team Providers Care Saxophone Player Name Role Phone Unavailable Unavailable Unavailable Surgery Details Not on file Complications Check Surgery Details section. Procedure Estimated Blood Loss Check Surgery Details section. Procedure Findings Check Surgery Details section. Procedure Specimens Taken Check Surgery Details section.
--- OUTSIDE RECORDS SUMMARY | 2024-02-10 11:36 | XMS_ITS | Referral Summary ---
Author Organization [facility] Address [address] [place] [address] Care Team Providers Care Database Tester Name Role Phone Janet Perez M.D. Primary Care Provider [phone] Source Comments Patient records contain information from all sites at [facility]. For routine questions regarding patient records, call [phone] during business hours, M-F 8:00 AM - 5:00 PM Central Time. Record requests for emergency care only can be directed to [phone] at any time.[facility] Encounters Date Type Department Care Team Description 12/15/2023 Clinical Communication Department of Obstetrics and Gynecology in [place], [place] [address] [place] [address] Ramirez Boggs Jr., M.D. from Last 3 Months Allergies Active Allergy [...] often do you attend chur ch or orthodox services? More than 4 times per year 10/25/2019 Do you belong to any clubs o r organizations such as hoahaoism groups, unions, fraternal or athletic groups, or [...] Answer Date Recorded PHQ-2 Score 0 08/26/2023 [facility] of Occupat ional Health - Occupational [...] on file Medical Devices Implanted Type Area Pilot Submersible Device Identifier Shelf Expiration Date Model / Serial / Lot [facility] Endo 235 - [id number] Implanted:Qty: 1 on 01/18/2019 by Darlyn Gonzales M.D. at [facility] [employer]onda Hardware e.g. pins/screws/ rods N/A: Other/Legacy - See Implant Description [employer] [id number] 02/26/2021 [id number] 8 Clp [facility] Endo 235 - [id number] Implanted:Qty: 1 on 01/18/2019 by Darlyn Gonzales M.D. at [facility] Person[facility] Hard[facility] e.g. pins/screws/ rods N/A: Other/Legacy - See Implant Description [employer] [id number] 02/26/2021 [id number] 8 Align Sling Retropubic - Rosario [id number] Implanted:Qty: 1 on 11/20/2014 Urogenital Implant Other/Legacy - See Implant Description Description:Device Manufactu rer - [employer] Patient Care Division. Body Location - Other. Not Applicable. Device Status Text - [id number]. Urologic Other Urologic Other Bladder Procedures Procedure Name Priority Date/Time Associated Diagnosis Comments BI BREAST SCREENING BILATERAL WITH TOMOSYNTHESIS RAD - Routine (most inpatients and all outpatients) 08/05/2023 8:34 AM CDT Screening Mammogram Breast Cancer COLONOSCOPY Routine 10/06/2022 7:39 AM CDT Polyp Colon Adenomatous Screening Cancer Colon HPV WITH GENOTYPING, PCR, THINPREP Routine 06/10/2022 9:33 AM CASING FLUSHER BASIC METABOLIC PANEL, S/P Routine 03/11/2022 11:33 [...] AM CDT) 10/06/2022 7:39 AM CDT Impressions [facility] - 10/06/2022 9:04 AM CDT Post-op Diagnoses: ? - The examined portion of the ileum was normal. ? - One 4 mm flat polyp in the sigmoid colon, removed with a cold snare. ? Resected and retrieved. ? - The examination was otherwise normal. ? - Retroflexion in rectum not performed due to small size. Narrative [facility] - 10/06/2022 9:04 AM CDT Gonda 2 [...] for surveillance. ? - Return to physician educational assistant. Findings: ? The perianal and digital [...] preparation was evaluated using the BBPS ? ([place] Bowel Preparation Scale) with scores of: Right [...] AM Pedro Cowan APRN C.N.P., M.S. GI NE OCEDURE ORDERABLES Performing Organization Address City/State/[facility] Phone Number [facility] * HPV with Genotyping, PCR, ThinPrep (06/10/2022 9:33 AM CASING FLUSHER) HPV with Genotyping, ThinPrep, PCR Negative Negative 06/11/2022 2:19 PM CASING FLUSHER MKTO Comment: Negative for high risk HPV [...] correlated with patient's history, clinical presentation, and SOLAR SALES REPRESENTATIVE cytology report. 06/10/2022 9:33 AM CASING FLUSHER 06/11/2022 7:18 AM CASING FLUSHER Ramirez Boggs Jr., M.D. LAB MICROBIOLO GY - GENERAL ORDERABLES [facility] [address] [place] [address], [facility] MKTO [facility] [place] [address] [place] [address] * Basic Metabolic Panel (03/11/2022 11:33 AM [...] CDT Lizy Law M.D. LAB BLOOD ADD-ON Performing Organization Address City/[facility]/ZIP Co de Phone Number [facility] [address] [place] [address], [facility] OWAT [facility] [place] [address] [place] [address] * (ABNORMAL) Lipid Panel (01/29/2021 10:00 AM [...] Boggs Jr., M.D. LAB BLOOD ADD- ON [facility] [address] [place] [address], [facility] OWAT [facility] [place] [address] [place] [address] * HCV Ab Scrn w/Reflex to HCV PCR, Serum (01/29/2021 10:00 AM CDT) HCV Ab Screen, S Negative Negative 01/30/2021 8:23 AM CDT [facility] Comment:Vgkkxr-[id number]-[id number] rat io is <1.00. Blood (Blood, Venous) 01/29/2021 10:00 AM CDT 01/30/2021 7:26 AM CDT Ramirez Boggs Jr., M.D. LAB MICROBIOLO GY - BLOOD ORDERABLES [facility] [address] [place] [address] [facility] Dept. of Laboratory Medicine and Pathology [address] [place] [address] * HXZZORDERS (08/31/2011 10:30 AM CDT) HIV-1/-2 Antibody Negative Negative POWERCHART Comment: If this test is ordered as a follow-up test to a reactive rapid HIV antibody test result, supplemental testing by Western blot is recommended, even when this test result is negative. Test Performed by: [facility] Dpt of Lab Med and Pathology [address] [place] [address] Extraction Supervisor: Saúl Plascencia III, M.D. Blood 08/31/2011 10:3 0 AM CDT Ramirez Boggs Jr., M.D. LAB HISTORICAL ORDERS POWERCHART from Last 3 Months or Most Recently Relevant to Health Maintenance Care Teams Database Tester Relationship Specialty Start Date End Date Janet Perez M.D. [address] [facility] [place] [phone] PCP - General 05/28/22
--- OUTSIDE RECORDS SUMMARY | 2024-02-10 11:36 | XMS_ITS | Clinical Summary ---
Author Organization [facility] Address [place], [place] [address] Care Team Providers Care Supervisor Assembly Name Role Phone Faby Roe FIELD ASSESSOR Primary Care Provider [phone] Allergies Active Allergy Reactions Criticality Noted Date [...] Tetanus booster 03/24/2020 03/24/2010 COVID-19 vaccine series (2023- season) 2024 Influenza for age 50-64 01/09/2024 02/26/20 18, 02/26/2017, 01/31/2015, Additional history exists Tdap Completed 03/24/2010 Medical Devices Implanted Type Area Dental Financial Coordinator Device Identifier Shelf Expiration Date Model / Serial / Lot Screw Bone 2.5x18mm Mini Headed - [id number] Implanted:Qty: 2 on 04/04/2019 by Frandy Barrera DPM at [facility] Right: Foot [employer] [id number] / / Screw Bone 2.5x18mm Mini Headed - [id number] Implanted:Qty: 2 on 02/11/2021 by Frandy Barrera DPM at [facility] Left: Foot [employer] [id number] / / Wire Kirs .[id number] Smoothx6/Pk 1643-10- Depuy/[place]i - [id number] Implanted:Qty: 1 on 02/11/2021 by Frandy Barrera DPM at [facility] Left: Foot [employer] 0 / / Explanted Type Area Dental Financial Coordinator Device Identifier Shelf Expiration Date Model / Serial / Lot Screw Bone 2.5x16mm Mini Headed - [id number] Explanted:Qty: 1 on 04/04/2019 by Frandy Barrera DPM at [facility] Right: Foot [employer] [id number] / / K-Wire 2.5mm Non-Thrd Diameter 0.9 Mm - [id number] Explanted:Qty: 2 on 02/11/2021 by Frandy Barrera DPM at [facility] Left: Foot [employer] [id number] / / Advance Directives * Full Code (Latest Code Status on File) Date Activated Date Inactivated Comments 02/11/2021 6:09 AM 02/11/2021 1:58 PM Question Answer Comments Code Status Discussion: Not Discussed * Full Code Date Activated Date Inactivated Comments 04/04/2019 8:45 AM 04/04/2019 1:43 PM Care Teams Supervisor Assembly Relationship Specialty Start Date End Date Faby Roe FIELD ASSESSOR [address] [place] [address] PCP - General Emergency Medicine 03/10/23
== END 2024-02-10 11:30 | disposition home or self-care (01) ==
PROVIDERS: PCP Nurse Practitioner Family; Visit Provider Nurse Practitioner Family
DX: R06.00 Dyspnea, unspecified (principal); R00.2 Palpitations; R55 Syncope and collapse; Z13.6 Encounter for screening for cardiovascular disorders
CPT/HCPCS: 80053; 80061; 83735; 84443; 85025

== ENCOUNTER 2025-01-18 10:41 | Outpatient (CLI) | payer BC, SELFPAY ==
--- NOTE | 2025-01-18 11:00 | CRLHL7_ITS ---
For Patients: As a result of the Century Cures Act, medical imaging exams and procedure reports are released immediately into your electronic medical record. You may view this report before your referring provider. If you have questions, please contact your health care provider. INDICATION: Headaches. Ear pain. Plugged ear sensation. TECHNIQUE: High-resolution CT images of the bilateral petrous temporal bones were obtained without contrast. Multiplanar reconstructions. FINDINGS: The external auditory canals are normally patent. The middle ear cavities including Prussak`s space are clear. The ossicular chain appears normal bilaterally. Mastoid air cells are well developed and clear bilaterally. The cochlea, vestibule and semicircular canals are unremarkable. Relative thinning of the bone covering the right superior semicircular canal but likely intact. The internal auditory canals are unremarkable. IMPRESSION: Negative CT imaging of the petrous temporal bones. Clear middle ear cavities and mastoid air cells bilaterally. Please note that all CT scans at this facility use dose modulation, iterative reconstruction, and/or weight-based dosing when appropriate to reduce radiation dose to as low as reasonably achievable. Dictated by Howie Deluca MD @ 01/19/2025 6:19:30 AM (Electronically Signed)
--- NOTE | 2025-01-18 11:30 | CRLHL7_ITS ---
For Patients: As a result of the Century Cures Act, medical imaging exams and procedure reports are released immediately into your electronic medical record. You may view this report before your referring provider. If you have questions, please contact your health care provider. INDICATION: Sinus headache. One year sensation. TECHNIQUE: Routine CT imaging of the paranasal sinuses are obtained without contrast. Multiplanar reconstructions. Findings : Frontal: The frontal air cells and inferior frontal recesses are patent and clear. Ethmoid: The ethmoid air cells are clear bilaterally. Sphenoid: Sphenoid air cells are clear bilaterally and sphenoid ethmoidal recesses are patent. Maxillary: There is 1-2 mm mucosal thickening at the base of the maxillary sinuses. No air-fluid levels. The ostiomeatal units are patent bilaterally. Nasal fossa: Minimal curvature of the posterior bony nasal septum and nasal fossa and nasopharynx are otherwise unremarkable. Incidental findings include the ossification of the midline falx. Lucencies within the bony calvarium consistent with vascular channels and arachnoid granulations of doubtful significance. IMPRESSION: 1. Minor mucosal thickening at the base of the bilateral maxillary sinuses. Patent bilateral ostiomeatal units. 2. No air-fluid levels. 3. Minimal curvature of the posterior bony nasal septum. Please note that all CT scans at this facility use dose modulation, iterative reconstruction, and/or weight-based dosing when appropriate to reduce radiation dose to as low as reasonably achievable. Dictated by Howie Deluca MD @ 01/19/2025 6:26:55 AM (Electronically Signed)
== END 2025-01-18 10:42 | disposition home or self-care (01) ==
LOC: CT 10:42
PROVIDERS: PCP Nurse Practitioner Family; Visit Provider Physician Assistant
DX: H93.19 Tinnitus, unspecified ear (principal); J32.0 Chronic maxillary sinusitis; J34.2 Deviated nasal septum; R51.9 Headache, unspecified
CPT/HCPCS: 70480; 70486

== ENCOUNTER 2025-03-22 09:03 | Outpatient (CLI) | payer BC, SELFPAY | END 2025-03-22 09:04 | disposition home or self-care (01) | PROVIDERS: PCP Nurse Practitioner Family; Visit Provider Nurse Practitioner Family | DX: Z01.818 Encounter for other preprocedural examination (principal); R00.2 Palpitations | CPT/HCPCS: 80050; 80053; 84443; 85025 ==

== ENCOUNTER 2025-04-13 08:50 | Day surgery (SDC) | payer BC, SELFPAY ==
[2025-04-13] VITALS (17 sets, daily range): BP systolic 100–134; BP diastolic 52–81; PULSE 63–96; RESP 16; TEMP 36.2–36.6; O2SAT 91–98; BMI 38.0
[2025-04-13] MEDS: LACTATED RINGERS 1000 ML 1,000 ML 100 ML IV (09:15)
[2025-04-13] MEDS: SODIUM CHLORIDE 0.9 % (FLUSH) 10 ML SYRINGE IVF (09:15)
[2025-04-13] MEDS: ONDANSETRON 2 MG/ML inj 4 MG IVP ×2 (09:30→11:20)
[2025-04-13] MEDS: OXYMETAZOLINE 0.05% NASAL SPRAY 2 SPRAY NOSTRIL-B (09:50)
[2025-04-13] MEDS: AYR SALINE NASAL GEL 1 APPLIC NOSTRIL-B (10:46)
[2025-04-13] MEDS: BUPIVACAINE 0.5%/EPINEPHRINE 0.9 MG (30.9 ML) INJECTION (11:00)
[2025-04-13] MEDS: MUPIROCIN 1 GM PACKET 1 APPLIC TOPICAL (11:00)
--- NOTE | 2025-04-13 11:12 | P.ANES_ITS ---
Anesthesia Charges Start Date/Time Anesthesia Start Date: 04/13/25 Anesthesia Start Time: 10:24 Stop Date/Time Anesthesia Stop Date: 04/13/25 Anesthesia Stop Time: 11:15 Coding CPT Codes CPT Codes: ANESTH NOSE/SINUS SURGERY - 08452 ([id number]) P3 - PATIENT W/SEVERE SYS DISEASE, QK - OPHTHALMIC SURGICAL ASSISTANT 2-4 CNCRNT ANES PROC, QX - SPIN INSTRUCTOR SVC W/ MD MED DIRECTION
--- NOTE | 2025-04-13 11:12 | W.ANESCHARGE ---
Anesthesia Charges Start Date/Time Anesthesia Start Date: 04/13/25 Anesthesia Start Time: 10:24 Stop Date/Time Anesthesia Stop Date: 04/13/25 Anesthesia Stop Time: 11:15 Coding CPT Codes CPT Codes: ANESTH NOSE/SINUS SURGERY - 94668 ([id number]) P3 - PATIENT W/SEVERE SYS DISEASE, QK - STEAM HAMMER OPERATOR 2-4 CNCRNT ANES PROC, QX - POTATO PEELING MACHINE OPERATOR SVC W/ MD MED DIRECTION
--- NOTE | 2025-04-13 11:21 | P.ANES_ITS ---
Anesthesia Charges Start Date/Time Anesthesia Start Date: 04/13/25 Anesthesia Start Time: 10:24 Stop Date/Time Anesthesia Stop Date: 04/13/25 Anesthesia Stop Time: 11:15 Coding CPT Codes CPT Codes: ANESTH NOSE/SINUS SURGERY - 23734 ([id number]) QX - ELEMENTARY SCHOOL MUSIC TEACHER SVC W/ MD MED DIRECTION, QK - ALLIED HEALTH PROFESSIONAL 2-4 CNCRNT ANES PROC, P3 - PATIENT W/SEVERE SYS DISEASE
--- NOTE | 2025-04-13 11:21 | W.ANESCHARGE ---
Anesthesia Charges Start Date/Time Anesthesia Start Date: 04/13/25 Anesthesia Start Time: 10:24 Stop Date/Time Anesthesia Stop Date: 04/13/25 Anesthesia Stop Time: 11:15 Coding CPT Codes CPT Codes: ANESTH NOSE/SINUS SURGERY - 78825 ([id number]) QX - COUNTER ATTENDANT SVC W/ MD MED DIRECTION, QK - PLATER PRINTED CIRCUIT BOARD PANELS 2-4 CNCRNT ANES PROC, P3 - PATIENT W/SEVERE SYS DISEASE
--- NOTE | 2025-04-13 12:01 | P.ENTPROC_ITS ---
Procedure Note Date of procedure: 04/13/25 Procedure: Preop diagnosis severe right eustachian tube dysfunction deviated septum nasal obstruction, right inferior turbinate hypertrophy, left inferior turbinate hypertrophy Postop same Procedure is right myringotomy with Sage tube placement, nasal septoplasty, submucous partial resection inferior turbinates Under general endotracheal anesthesia patient was prepped draped usual fashion. The right ear canal was is a inspected. Cerumen was removed with a wax curette and an inferior radial myringotomy made. I will send tube was inserted. She has an extremely narrow aud were the angled canal but I was able to place the tube without difficulty. The drops were then placed. The nose was decongested injected. Incision was made in the septal mucosa anterior to deflection right area 3 mucosa on either side of the. The Flector portion of septum elevated and then this was resected with the Scott forceps after 1st cutting with an angled scissors. This effectively also removed the bone spur on the left side area 4. The flap was then laid back down. On the right inferior turbinate a tunnel was created with a Obion dissector and the after 1st making a stab incision. A conservative anterior submucous resection w as performed of the Coblation Wand was used for hemostasis and to cauterize intramurally along the inferior 10%. This was repeated on the left side in identical fashion. Single piece of bone was trimmed returned to the posterior intraseptal space. The flap laid down nicely. Merocel packing was placed on either side of the septal flap. The patient procedure well was taken recovery in satisfactory condition. Blood loss 10 mL. Surgeon: Ranjit Butcher MD
[2025-04-13] MEDS: PROCHLORPERAZINE 5 MG/ML VIAL IVP (12:05)
== END 2025-04-13 14:24 | disposition home or self-care (01) ==
LOC: OR 08:52
PROVIDERS: PCP Nurse Practitioner Family; Visit Provider Otolaryngology
PROC: (CPT 30520; principal; 2025-04-13 10:15)
PROC: (CPT 69420; 2025-04-13 10:15)
DX: J34.2 Deviated nasal septum (principal); J34.3 Hypertrophy of nasal turbinates; J34.89 Other specified disorders of nose and nasal sinuses; H69.91 Unspecified Eustachian tube disorder, right ear
CPT/HCPCS: 69436; 30520; 30140; 00160; A9270; J0330; J0780; J1100; J1171; J2250; J2405; J2704; J3010; J7120

== ENCOUNTER 2025-05-07 16:36 | Outpatient (CLI) | payer BC, SELFPAY ==
--- NOTE | 2025-05-07 16:45 | CRLHL7_ITS ---
For Patients: As a result of the 21st Century Cures Act, medical imaging exams and procedure reports are released immediately into your electronic medical record. You may view this report before your referring provider. If you have questions, please contact your health care provider. INDICATION: Otalgia TECHNIQUE: Temporal bone CT was performed without the administration of intravenous contrast. COMPARISON: : Temporal bone CT 01/18/2025. FINDINGS: RIGHT TEMPORAL BONE: The auricle and adjacent soft tissues are unremarkable. The external auditory canal is patent without stenosis or obstruction. Interval placement of a tympanostomy tube. The tympanic membrane is not thickened. No abnormal density in the middle ear cavity including the sinus tympani and facial recess. The ossicular chain is intact. The scutum is normal in morphology and Prussak`s space is clear. The mastoid air cells are clear. Focal areas of thinning/dehiscence of the tegmen tympani and tegmen mastoideum. The otic capsule is normal in density. No abnormality of the cochlea, vestibule, or semicircular canals. The internal auditory canal is normal in caliber and contour. The vestibular aqueduct is normal in size. No abnormality of the facial nerve canal, internal carotid artery, or jugular bulb. LEFT TEMPORAL BONE: The auricle and adjacent soft tissues are unremarkable. The external auditory canal is patent without stenosis or obstruction. The tympanic membrane is normal. No abnormal density in the middle ear cavity including the sinus tympani and facial recess. The ossicular chain is intact. The scutum is normal in morphology and Prussak`s space is clear. The mastoid air cells are clear. Focal areas of thinning/dehiscence of the tegmen tympani and tegmen mastoideum. The otic capsule is normal in density. No abnormality of the cochlea, vestibule, or semicircular canals. The internal auditory canal is normal in caliber and contour. The vestibular aqueduct is normal in size. No abnormality of the facial nerve canal, internal carotid artery, or jugular bulb. ADDITIONAL FINDINGS: The visualized intracranial structures are grossly within normal limits. No acute orbital pathology. Polypoid mucosal thickening/secretions in the left maxillary sinus. No acute or aggressive osseous lesions. IMPRESSION: 1. Interval placement of a right tympanostomy tube. 2. Thinning/dehiscence of the tegmen tympani and tegmen mastoideum bilaterally. 3. The temporal bone structures are otherwise unremarkable. 4. Polypoid mucosal thickening/secretions in the left maxillary sinus. Please note that all CT scans at this facility use dose modulation, iterative reconstruction, and/or weight-based dosing when appropriate to reduce radiation dose to as low as reasonably achievable. Dictated by Bill Almaguer MD @ 05/08/2025 2:35:53 PM (Electronically Signed)
== END 2025-05-07 16:37 | disposition home or self-care (01) ==
LOC: CT 16:37
PROVIDERS: PCP Nurse Practitioner Family; Visit Provider Otolaryngology
DX: H92.09 Otalgia, unspecified ear (principal); J32.0 Chronic maxillary sinusitis
CPT/HCPCS: 70480